=== PATIENT | female | born 1960 | race Caucasian/White ===

== ENCOUNTER → 2020-08-23 11:07 | Outpatient (CLI) | payer BC, SELFPAY ==
[2020-08-23 12:10] LABS: COVID19 -Nasal RAPID Negative (Negative)
== END ==
PROVIDERS: Visit Provider Physician Assistant
DX: Z11.59 Encounter for screening for other viral diseases (principal)
CPT/HCPCS: 87635

== ENCOUNTER → 2020-10-30 09:50 | Outpatient (CLI) | payer BC, SELFPAY ==
[2020-10-30 11:42] LABS: COVID19 -Nasal RAPID Negative (Negative)
== END ==
PROVIDERS: Visit Provider Physician Assistant
DX: Z20.822 Contact with and (suspected) exposure to COVID-19 (principal)
CPT/HCPCS: 87635

== ENCOUNTER 2020-11-11 14:59 | Emergency (ER) | payer BC, SELFPAY ==
[2020-11-11] VITALS (11 sets, daily range): BP systolic 159–215; BP diastolic 70–91; PULSE 62–91; RESP 11–25; TEMP 37.2; O2SAT 96–100; BMI 26.9
--- NOTE | 2020-11-11 15:11 | DI.RAD.S_ITS ---
PROCEDURE: XR CHEST 1V INDICATIONS: chest pain TECHNIQUE: One view of the chest was acquired. COMPARISON: Outside Film, CR, XR CHEST 2 VIEWS, 04/17/2017, 16:33. FINDINGS: Overlying EKG wires. Surgical changes and devices: None. Lungs and pleura: Lungs are clear. No pleural effusions or pneumothorax. Mediastinum: Mediastinal contours appear normal. Heart size is normal. Bones and chest wall: No acute osseous abnormality. Globular calcifications along the superior left humeral head likely represent hydroxyapatite deposition and may be seen with calcific tendinitis of the rotator cuff. Calcifications overlying the acromion are nonspecific but may represent cycle of remote trauma. Overlying soft tissues appear unremarkable. IMPRESSION: No evidence of an acute cardiopulmonary abnormality. Dictated by: Yousuf Chand D.O. on 11/11/2020 at 15:04 Approved by: Yousuf Chand D.O. on 11/11/2020 at 15:06
[2020-11-11 15:36] LABS: Add Manual Diff / Slide Review NO; Basophils Absolute Auto 100 /uL (0-100); Basophils Percent Auto 1.1 % (0-2); Eosinophils Absolute Auto 100 /uL (0-450); Eosinophils Percent Auto 1.3 % (2-4); Hematocrit 37.6 % (36-46); Hemoglobin 13.6 g/dL (12.0-16.0); Lymphocytes Absolute Auto 1300 /uL (1100-4500); Mean Corpuscular Hemoglobin 30.3 PG (26-34); Mean Corpuscular Volume 83.7 fL (80-100); Monocytes Absolute Auto 400 /uL (0-900); Monocytes Percent Auto 5.1 % (3-14); Neutrophils Absolute Auto 5400 /uL (1500-7000); Neutrophils Percent Auto 74.5 % (50-75); Prothrombin Time 11.3 SECONDS (10.1-12.7); Red Blood Cell Count 4.49 X10^6/uL (4.0-5.2); Red Cell Distribution Width 16.5 % (11.6-14.8); White Blood Cell Count 7.2 X10^3/uL (4.5-11.0)
[2020-11-11 15:38] LABS: PTT Partial Thromboplastin Tim 30 SECONDS (26.4-36.2)
--- NOTE | 2020-11-11 15:38 | ED_ITS ---
HPI - Chest Pain General Chief Complaint: Chest Pain Stated Complaint: left side chest pain Time Seen by Provider: 11/11/20 15:33 Source: patient Mode of arrival: Family Vehicle Limitations: no limitations History of Present Illness HPI narrative: Patient is a 59-year-old female. Has a history of costochondritis. States that it mid morning she started having he sharp pain in her left side of her chest that did not seem to get better with movement or palpation. Then she started to get some tingling in her left jaw. Those symptoms have resolved however she occasionally gets the sharp pain on the left side of her chest that she states is different than when she had this morning. She states that it was consistent for the past couple hours however is resolved by the time I evaluated the patient. Has never had anything like this in the past. Related Data Home Medications Medication Instructions Recorded Confirmed amlodipine 5 mg tablet 5 mg PO DAILY 09/13/19 09/23/20 Previous Rx's Medication Instructions Recorded fluticasone propionate 50 2 spray INTRANASAL DAILY #18.2 ml 09/23/20 mcg/actuation nasal spray,suspension Allergies Allergy/AdvReac Type Severity Reaction Status Date / Time ciprofloxacin [From Cipro] AdvReac Intermediate Tendon Verified 11/11/20 15:09 issues metoprolol AdvReac Intermediate heart races Verified 11/11/20 15:09 Sulfa (Sulfonamide AdvReac Intermediate Rash Verified 11/11/20 15:09 Antibiotics) Review of Systems Constitutional Constitutional: Denies fever(s) Cardiovascular Cardiovascular: Reports chest pain, Denies diaphoresis, Denies rapid heart rate, Denies edema and Denies dyspnea Respiratory Respiratory: Denies chest congestion and Denies dyspnea Gastrointestinal Gastrointestinal: Denies nausea and Denies vomiting Genitourinary Genitourinary: Denies dysuria Genitourinary: Denies dysuria Musculoskeletal Musculoskeletal: Denies arthralgias and Denies myalgias Integumentary/Breasts Skin/Breast: Denies rash Neurologic Neurologic: Denies behavioral changes Psychiatric Psychiatric: Denies behavioral changes Hematologic/Lymphatic On Anticoagulants: No Allergic/Immunologic Allergic/Immunologic: Denies urticaria Patient History Medical History Anemia Chicken pox Colon polyps (~2012) Diverticular disease (~1983) Essential tremor (~2016) Fibroids Foot pain (~2015) Headache Heavy menstrual period (~1998) Kidney stones (~2017) Migraines (~1993) Mitral valve prolapse (~1993) MRSA (methicillin resistant Staphylococcus aureus) Ovarian cyst Painful menstrual periods (~1998) Rosacea (~2008) Shoulder pain (~2008) Spherocytosis (~1993) Tinnitus (~2009) Surgical History (Updated 09/14/19 @ 22:16 by Kita Das) Anesthesia History of colonoscopy (~10/2012) History of hysteroscopy (~11/2010) History of sinus surgery (~01/2012) Family History (Updated 09/14/19 @ 22:18 by Kita Das) Father History of heart disease Mother Atrial fibrillation Diabetes mellitus Thyroid condition Breast cancer Stroke Social History Smoking Status: Former smoker Smoking Status: Former smoker Substance Use Type: does not use Exam Initial Vital Signs Initial Vital Signs: Vital Signs Temperature 99.0 F 11/11/20 15:06 Pulse Rate 91 H 11/11/20 15:06 Respiratory Rate 18 11/11/20 15:06 Blood Pressure 215/91 H 11/11/20 15:06 Pulse Oximetry 98 11/11/20 15:06 Const General: cooperative and comfortable Limitations: mental status not altered HENMT Head: normal to inspection and normocephalic Chest Chest: No crepitus and No tenderness Resp Effort & Inspection: normal respiratory effort Auscultation: clear to auscultation bilaterally Cardio Rate: regular rate Rhythm: regular rhythm GI Inspection: non-distended Palpation: soft Skin Lesions: no lesions Rashes: no rashes Neuro General: patient alert and patient awake Cognition: normal cognition Speech: speech normal Extrem General: capillary refill normal Psych Appearance: grossly normal and well kempt Course Orders Ordered: ED Orders 11/11/20 15:10 Complete Blood Count AUTO DIFF Stat Comprehensive Metabolic Panel Stat Lipase Stat Partial Thromboplastin Time Stat Prothrombin Time INR Stat Troponin & CK Cardiac Panel Stat 11/11/20 15:11 XR chest 1V Stat EKG-12 Lead Stat 11/11/20 17:30 Troponin & CK Cardiac Panel Stat Vital Signs Vital signs: Vital Signs - 8 hr 11/11/20 15:06 11/11/20 15:07 11/11/20 15:30 Temperature 99.0 F Pulse Rate 91 H 90 70 Respiratory Rate 18 25 H 11 L Blood Pressure 215/91 H Pulse Oximetry 98 99 99 11/11/20 15:31 11/11/20 16:00 11/11/20 16:30 Temperature Pulse Rate 70 65 62 Respiratory Rate 12 16 13 Blood Pressure 170/72 H 181/74 H 171/72 H Pulse Oximetry 100 100 99 11/11/20 17:00 Temperature Pulse Rate 62 Respiratory Rate 15 Blood Pressure 159/70 H Pulse Oximetry 98 MDM - Chest Pain Lab Data Attestation: I reviewed the patient's lab results. Result diagrams: 11/11/20 15:10 11/11/20 15:10 Labs: Lab Results 11/11/20 11/11/20 11/11/20 Range/Units 15:10 15:10 15:10 WBC 7.2 (4.5-11.0) X10^3/uL RBC 4.49 (4.0-5.2) X10^6/uL Hgb 13.6 (12.0-16.0) g/dL Hct 37.6 (36-46) % MCV 83.7 (80-100) fL MCH 30.3 (26-34) PG MCHC 35.5 (30-36) % RDW 16.5 H (11.6-14.8) % Plt Count 222 (150-400) X10^3/uL Neut % (Auto) 74.5 (50-75) % Lymph % (Auto) 18.0 L (25-40) % Jewell % (Auto) 5.1 (3-14) % Eos % (Auto) 1.3 L (2-4) % Baso % (Auto) 1.1 (0-2) % Neut # (Auto) 5400 (4246-7188) /uL Lymph # (Auto) 1300 (2547-7583) /uL Jewell # (Auto) 400 (0-900) /uL Eos # (Auto) 100 (0-450) /uL Baso # (Auto) 100 (0-100) /uL PT 11.3 (10.1-12.7) SECONDS INR 1.0 (0.9-1.3) APTT 30 (26.4-36.2) SECONDS Sodium 140 (137-145) mmol/L Potassium 4.0 (3.4-5.1) mmol/L Chloride 103 (98-107) mmol/L Carbon Dioxide 31 (22-32) mmol/L BUN 12 (7-17) mg/dL Creatinine 0.56 (0.52-1.04) mg/dL Estimated GFR > 60.0 (>60) mL/min BUN/Creatinine Ratio 21.4 (6-22) Glucose 143 H (70-100) mg/dL Calcium 9.3 (8.4-10.2) mg/dL Total Bilirubin 1.2 (0.2-1.3) mg/dL AST 33 (14-36) IU/L ALT 23 (<35) IU/L Alkaline Phosphatase 92 (38-126) U/L Total Creatine Kinase 39 (30-135) U/L CK-MB (CK-2) TNP CK-MB (CK-2) Rel Index TNP Troponin I < 0.012 (0.01-0.034) ng/mL Total Protein 8.2 (6.3-8.2) g/dL Albumin 4.7 (3.5-5.0) g/dL Globulin 3.5 (1.7-4.1) g/dL Albumin/Globulin Ratio 1.3 (1.0-2.8) Lipase 110 (23-300) U/L 11/11/20 Range/Units 17:30 WBC (4.5-11.0) X10^3/uL RBC (4.0-5.2) X10^6/uL Hgb (12.0-16.0) g/dL Hct (36-46) % MCV (80-100) fL MCH (26-34) PG MCHC (30-36) % RDW (11.6-14.8) % Plt Count (150-400) X10^3/uL Neut % (Auto) (50-75) % Lymph % (Auto) (25-40) % Jewell % (Auto) (3-14) % Eos % (Auto) (2-4) % Baso % (Auto) (0-2) % Neut # (Auto) (8609-5531) /uL Lymph # (Auto) (9674-7167) /uL Jewell # (Auto) (0-900) /uL Eos # (Auto) (0-450) /uL Baso # (Auto) (0-100) /uL PT (10.1-12.7) SECONDS INR (0.9-1.3) APTT (26.4-36.2) SECONDS Sodium (137-145) mmol/L Potassium (3.4-5.1) mmol/L Chloride (98-107) mmol/L Carbon Dioxide (22-32) mmol/L BUN (7-17) mg/dL Creatinine (0.52-1.04) mg/dL Estimated GFR (>60) mL/min BUN/Creatinine Ratio (6-22) Glucose (70-100) mg/dL Calcium (8.4-10.2) mg/dL Total Bilirubin (0.2-1.3) mg/dL AST (14-36) IU/L ALT (<35) IU/L Alkaline Phosphatase (38-126) U/L Total Creatine Kinase 30 (30-135) U/L CK-MB (CK-2) TNP CK-MB (CK-2) Rel Index TNP Troponin I < 0.012 (0.01-0.034) ng/mL Total Protein (6.3-8.2) g/dL Albumin (3.5-5.0) g/dL Globulin (1.7-4.1) g/dL Albumin/Globulin Ratio (1.0-2.8) Lipase (23-300) U/L Imaging Data Chest x-ray: Radiologist's Impression: [address] [id number] ReportSigned Patient: Verónica Campbell [facility]#: [id number]: 2Acct:[id number]/Sex: 59 / FDate of Service: 11/11/20Loc: EDAccession Number: [id number] Procedure: XR chest 1V Ordering Provider: Lang Scott D.O. PROCEDURE: XR CHEST 1V INDICATIONS: chest pain TECHNIQUE: One view of the chest was acquired. COMPARISON: Outside Film, CR, XR CHEST 2 VIEWS, 04/17/2017, 16:33. FINDINGS: Overlying EKG wires. Surgical changes and devices: None. Lungs and pleura: Lungs are clear. No pleural effusions or pneumothorax. Mediastinum: Mediastinal contours appear normal. Heart size is normal. Bones and chest wall: No acute osseous abnormality. Globular calcifications along the superior left humeral head likely represent hydroxyapatite deposition and may be seen with calcific tendinitis of the rotator cuff. Calcifications overlying the acr omion are nonspecific but may represent cycle of remote trauma. Overlying soft tissues appear unremarkable. IMPRESSION: No evidence of an acute cardiopulmonary abnormality. Dictated by: Yousuf Chand D.O. on 11/11/2020 at 15:04 Approved by: Yousuf Chand D.O. on 11/11/2020 at 15:06 ECG Data Attestation: I personally reviewed and interpreted this ECG as follows: Prior ECG tracings: not available for review Interpretation: Sinus rhythm Ventricular rate 81 Normal axis Normal QRS Normal QTC No ST T wave changes MDM Narrative Medical decision making narrative: EKG is unremarkable, troponins are negative x2 with the 2nd being greater than 6 hours after the onset of symptoms. Her presentation today is more consistent with musculoskeletal/chest wall discomfort per her description rather than a cardiac discomfort. She is going to continue her medications. She is going to contact her primary doctor to discuss further workup. She is given return precautions. She expressed understanding and agreement. Discharge Plan Departure Patient Disposition: Home Clinical Impression: Atypical chest pain Instructions: DI for Atypical Chest Pain Activity Restrictions/Additional Instructions: I recommend you continue all of your medications as directed and I also recommend you contact your primary provider to discuss the indications for an outpatient stress test. Return to the emergency department for any new or worsening symptoms Prescriptions: No Action fluticasone propionate [Flonase Allergy Relief] 50 mcg/actuation spray,suspension 2 spray intranasal DAILY Qty: 18.2 RF: 0 amlodipine 5 mg tablet 5 mg PO DAILY RF: 0 Referrals: Mikayla Caba MD [Primary Care Provider] -
[2020-11-11 15:39] LABS: Alanine Aminotransferase 23 IU/L (<35); Albumin 4.7 g/dL (3.5-5.0); Albumin Globulin Ratio 1.3 (1.0-2.8); Alkaline Phosphatase 92 U/L (38-126); Aspartate Aminotransferase 33 IU/L (14-36); BUN Creatinine Ratio 21.4 (6-22); Bilirubin Total 1.2 mg/dL (0.2-1.3); Blood Urea Nitrogen 12 mg/dL (7-17); Calcium 9.3 mg/dL (8.4-10.2); Carbon Dioxide 31 mmol/L (22-32); Chloride 103 mmol/L (98-107); Creatine Kinase 39 U/L (30-135); Estimated Glomerular Filt Rate > 60.0 mL/min (>60); Globulin 3.5 g/dL (1.7-4.1); Glucose 143 mg/dL (70-100); Lipase 110 U/L (23-300); Sodium 140 mmol/L (137-145); Total Protein 8.2 g/dL (6.3-8.2)
[2020-11-11 15:44] LABS: HEMOLYSIS 65 (0-50)
[2020-11-11 15:51] LABS: Troponin I < 0.012 ng/mL (0.01-0.034)
[2020-11-11 16:04] LABS: Mean Corpuscular HGB Conc 35.5 % (30-36)
[2020-11-11 16:07] LABS: Platelet Count 222 X10^3/uL (150-400)
[2020-11-11 17:53] LABS: Creatine Kinase 30 U/L (30-135)
[2020-11-11 18:05] LABS: Troponin I < 0.012 ng/mL (0.01-0.034)
== END 2020-11-11 18:40 | disposition home or self-care (01) ==
PROVIDERS: Emergency Provider Emergency Medicine; PCP Family Medicine
DX: R07.89 Other chest pain (principal)
CPT/HCPCS: 36415; 71045; 80053; 82550; 83690; 84484; 85025; 85610; 85730; 93005; 93010; 99284

== ENCOUNTER → 2020-11-30 13:04 | Outpatient (CLI) | payer BC, SELFPAY ==
[2020-11-30 13:43] LABS: COVID19 -Nasal RAPID Negative (Negative)
== END ==
PROVIDERS: PCP Family Medicine; Visit Provider Physician Assistant
DX: Z20.822 Contact with and (suspected) exposure to COVID-19 (principal)
CPT/HCPCS: 87635

== ENCOUNTER → 2020-12-30 11:51 | Outpatient (CLI) | payer BC, SELFPAY ==
[2020-12-30 12:15] LABS: COVID19 -Nasal RAPID Negative (Negative)
== END ==
PROVIDERS: PCP Family Medicine; Visit Provider Physician Assistant
DX: Z20.822 Contact with and (suspected) exposure to COVID-19 (principal)
CPT/HCPCS: 87635

== ENCOUNTER → 2021-02-03 09:35 | Outpatient (CLI) | payer BC, SELFPAY ==
[2021-02-03 10:22] LABS: Basophils Absolute Auto 0 /uL (0-100); Basophils Percent Auto 0.7 % (0-2); Eosinophils Absolute Auto 0 /uL (0-450); Eosinophils Percent Auto 0.5 % (2-4); Hematocrit 38.7 % (36-46); Lymphocytes Absolute Auto 1000 /uL (1100-4500); Lymphocytes Percent Auto 14.6 % (25-40); Mean Corpuscular HGB Conc 36.3 % (30-36); Mean Corpuscular Hemoglobin 30.5 PG (26-34); Mean Corpuscular Volume 84.2 fL (80-100); Monocytes Absolute Auto 300 /uL (0-900); Monocytes Percent Auto 4.2 % (3-14); Neutrophils Absolute Auto 5200 /uL (1500-7000); Platelet Count 238 X10^3/uL (150-400); Red Cell Distribution Width 16.5 % (11.6-14.8); White Blood Cell Count 6.6 X10^3/uL (4.5-11.0)
[2021-02-03 10:33] LABS: Lactate (Lactic Acid) 0.8 mmol/L (0.7-2.1)
[2021-02-03 10:34] LABS: Alanine Aminotransferase 23 IU/L (<35); Albumin 4.6 g/dL (3.5-5.0); Albumin Globulin Ratio 1.4 (1.0-2.8); Alkaline Phosphatase 90 U/L (38-126); Aspartate Aminotransferase 28 IU/L (14-36); BUN Creatinine Ratio 19.3 (6-22); Bilirubin Total 1.2 mg/dL (0.2-1.3); Blood Urea Nitrogen 11 mg/dL (7-17); Calcium 9.9 mg/dL (8.4-10.2); Carbon Dioxide 26 mmol/L (22-32); Chloride 105 mmol/L (98-107); Estimated Glomerular Filt Rate > 60.0 mL/min (>60); Globulin 3.3 g/dL (1.7-4.1); Glucose 102 mg/dL (70-100); HEMOLYSIS < 15 (0-50); Lipase 75 U/L (23-300); Sodium 139 mmol/L (137-145); Total Protein 7.9 g/dL (6.3-8.2)
[2021-02-03 10:57] LABS: Add Manual Diff / Slide Review SLIDE REVIEW
[2021-02-03 10:58] LABS: Rouleaux 1+
== END ==
PROVIDERS: PCP Family Medicine; Referring Provider Physician Assistant; Visit Provider Physician Assistant
DX: R10.31 Right lower quadrant pain (principal)
CPT/HCPCS: 36415; 80053; 83605; 83690; 85025

== ENCOUNTER → 2021-05-17 17:30 | Outpatient (CLI) | payer BC, SELFPAY ==
[2021-05-17 19:39] LABS: COVID19 -Nasal RAPID Negative (Negative)
== END ==
PROVIDERS: PCP Family Medicine; Visit Provider Physician Assistant
DX: Z20.822 Contact with and (suspected) exposure to COVID-19 (principal)
CPT/HCPCS: 87635

== ENCOUNTER → 2021-06-19 16:34 | Outpatient (CLI) | payer BC, SELFPAY ==
[2021-06-19 18:20] LABS: High Sensitivity CRP - Cardiac 3.1 mg/L (1.0-3.0)
[2021-06-19 19:19] LABS: Erythrocyte Sedimentation Rate 10 MM/HR (0-20)
== END ==
PROVIDERS: PCP Family Medicine; Referring Provider Psychiatry & Neurology Neurology; Visit Provider Psychiatry & Neurology Neurology
DX: R51.9 Headache, unspecified (principal)
CPT/HCPCS: 36415; 85651; 86140

== ENCOUNTER → 2021-11-16 09:58 | Outpatient (CLI) | payer BC, SELFPAY ==
[2021-11-16 10:56] LABS: Influenza A - CEPHEID Flu A NEGATIVE (NEGATIVE); Influenza B - CEPHEID Flu B NEGATIVE (NEGATIVE)
[2021-11-16 11:10] LABS: COVID-19 CEPHEID PCR (VTM/NP) Negative (Negative)
== END ==
PROVIDERS: PCP Family Medicine; Visit Provider Nurse Practitioner Family
DX: Z20.822 Contact with and (suspected) exposure to COVID-19 (principal); R68.89 Other general symptoms and signs
CPT/HCPCS: 0240U

== ENCOUNTER → 2022-04-26 07:56 | Outpatient (CLI) | payer BC, SELFPAY | PROVIDERS: PCP Family Medicine; Visit Provider Student in an Organized Health Care Education/Training Program | DX: R30.0 Dysuria (principal) | CPT/HCPCS: 87086 ==

== ENCOUNTER → 2023-04-07 13:42 | Outpatient (CLI) | payer BC, SELFPAY ==
--- NOTE | 2023-04-07 | DI.NM.S_ITS ---
PROCEDURE: NM EXERCISE TREADMILL NON NUC COMPARISON: None INDICATIONS: Chest pain, unspecified FINDINGS: Rest ECG sinus rhythm. Resting blood pressure 178/80. Ruben protocol 7:05, maximum heart rate 155 bpm (97% peak predicted), maximum blood pressure 198/65, 10.1 METS, OCTAVIA -5%. Exercise ECG sinus tachycardia, no ST segment changes, occasional PVCs. The patient did not complain of exercise-induced chest discomfort. IMPRESSION: Low risk study. No evidence of exercise-induced ischemia. Occasional PVCs noted. Baseline hypertension with otherwise normal hemodynamic response. Fair exercise capacity. Dictated by: Chastity Short D.O. on 04/07/2023 at 16:50 Approved by: Chastity Short D.O. on 04/07/2023 at 16:53
--- NOTE | 2023-04-07 | DI.ECHO.S_ITS ---
[facility]---------+ [facility] +---------+ : : [address] : : : : [id number] : : : : Phone: [phone]---------+ Echocardiogram Report + + :Name: DAY PELLETIER Study Date: 04/07/2023 Height: 64 in : :[facility] ReadingLocation: Weight: 157 lb : : Gender: Female BSA: 1.8 m2 : :: 1960 Age: 62 yrs BP: 168/79 mmHg: :Reason For Study: Chest Pain : :Ordering Physician: Stef, : :Tr Performed By: Meena Rayo : :Referring: TR FINCH : + + Interpretation Summary 1) Normal left ventricular thickness, size, and systolic function (EF 60-65%). 2) There are no obvious focal wall motion abnormalities noted but poor endocardial definition reduces the sensitivity for the detection of such. 3) Normal right ventricular size and function. 4) There is borderline mitral valve prolapse of the posterior leaflet. 5) No significant valvular stenosis or regurgitation. 6) No prior Echo available for comparison. Procedure: A two-dimensional transthoracic echocardiogram with color flow and Doppler was performed. The study quality was technically adequate. There is no prior echocardiogram noted for this patient. The patient was in normal sinus rhythm during the exam. Left Ventricle: The left ventricle is normal in size and wall thickness. The ejection fraction is estimated to be 60-65%. There are no obvious focal wall motion abnormalities noted but poor endocardial definition reduces the sensitivity for the detection of such. Diastolic parameters suggest a relaxation abnormality of the left ventricle, consistent with probable normal filling pressures. Right Ventricle: The right ventricle is normal size. The right ventricular systolic function is normal. Atria: The left atrial size is normal. Right atrial size is normal. There is no Doppler evidence for an interatrial shunt. Mitral Valve: The mitral valve leaflets appear mildly thickened, but open well. There is prolapse of the posterior mitral valve leaflet(s). There is borderline mitral valve prolapse. There is no mitral valve stenosis. There is trace mitral regurgitation. Aortic Valve: The aortic valve is trileaflet. The aortic valve opens well. There is no aortic valve stenosis. There is trace aortic regurgitation. Tricuspid Valve: The tricuspid valve is normal. There is no tricuspid stenosis. There is trace tricuspid regurgitation. The right ventricular systolic pressure is estimated to be at least 19 mmHg based on an estimated right atrial pressure of 3 mm Hg. Pulmonic Valve: The pulmonic valve leaflets are thin and pliable; valve motion is normal. There is no pulmonic valvular stenosis. There is trace pulmonic regurgitation. Great Vessels: The aortic root is normal size. The ascending aorta is normal in size. The pulmonary artery is normal size. The IVC is of normal diameter and collapses greater than 50% with a sniff. This suggests a low right atrial pressure of 3 mm Hg. Pericardium/ Pleura There is no pericardial effusion. There is no pleural effusion. MMode/2D Measurements & Calculations LVIDd: 4.4 cm LVOT diam: 1.9 cm LVIDs: 3.0 cm Ao root diam: 2.7 cm FS: 31.8 % asc Aorta Diam: 2.8 cm IVSd: 1.0 cm LVPWd: 1.0 cm LV madrigal. diameter/BSA (cm/m^2): 2.5 LV sys. diameter/BSA (cm/m^2): 1.7 LA A2 area: 18.6 cm2 RA long axis: 4.8 cm LA A4 area: 13.7 cm2 RA area: 12.6 cm2 LA length (vol): 5.2 cm RA vol: 28.2 ml LA vol: 41.4 ml RA : 16.0 ml/m2 LA vol index: 23.4 ml/m2 RVD1 (basal): 3.0 cm LVLs ap4: 5.9 cm LVLd ap2: 7.6 cm TAPSE_phl: 2.5 cm LVLs ap2: 6.4 cm Doppler Measurements & Calculations Ao V2 max: 154.0 cm/sec LVOT Max Terry: 111.5 cm/sec Ao V2 mean: 101.5 cm/sec LV V1 max P.0 mmHg Ao max P.0 mmHg LV V1 VTI: 26.3 cm Ao mean P.0 mmHg CALEB(I,D): 2.2 cm2 Ao V2 VTI: 35.5 cm CALEB(V,D): 2.2 cm2 sev ratio: 0.74 CALEB indexed to BSA (cm^2/m^2): 1.2 MV E max terry: 113.0 cm/sec TR max terry: 202.0 cm/sec MV A max terry: 96.8 cm/sec TR max P.3 mmHg MV E/A: 1.2 PA V2 max: 103.0 cm/sec Med Peak E' Terry: 8.0 cm/sec PA V2 mean: 74.5 cm/sec E/E' med: 14.1 PA mean P.0 mmHg Lat Peak E' Terry: 8.1 cm/sec PA pr(Accel): 12.4 mmHg E/E' lat: 13.9 E/e' average: 14.0 MV dec time: 0.24 sec SV(LVOT): 78.1 ml AV VR_phl: 0.73 CALEB(VTI)/BSA_phl: 1.1 MV P1/2t-pr_phl: 70.0 msec Reading Physician:04:20 PM
== END ==
PROVIDERS: PCP Family Medicine; Referring Provider Internal Medicine Cardiovascular Disease; Visit Provider Internal Medicine Cardiovascular Disease
DX: R07.89 Other chest pain (principal)
CPT/HCPCS: 93017; 93306

== ENCOUNTER 2023-08-30 08:30 | Emergency (ER) | payer BC, SELFPAY ==
[2023-08-30] VITALS (18 sets, daily range): BP systolic 147–201; BP diastolic 67–87; PULSE 49–72; RESP 16–28; TEMP 36.6; O2SAT 98–100; BMI 26.1
--- NOTE | 2023-08-30 08:48 | ED.EXTPRO ---
HPI - Extremity Problem General Chief complaint: Chest Pain Stated complaint: Left lower leg pain Time Seen by Provider: 08/30/23 08:46 Source: patient, RN notes reviewed and old records reviewed Mode of arrival: Ambulatory Limitations: no limitations History of Present Illness HPI Narrative: 62-year-old female with history of hereditary spherocytosis, mitral valve prolapse, hypertension on amlodipine, migraines with complaint of left calf pain for the past 2 or 3 days. Patient is not on any anticoagulation. Patient has tried ice, heat Epsom salt soaks and magnesium and drinking extra water without any improvement. She denies any redness, swelling or other skin changes. She has noticed some tingling in her left calf. States that it does feel a little bit different than the right. Has not resolved so she came to be checked. Patient states she is also noted little bit of upper chest discomfort or heaviness in her upper chest starting yesterday. Been constant. No shortness of breath, no syncope, no nausea or vomiting, no diaphoresis, she is had some mild dry cough, no upper respiratory congestion. No fevers or chills. Denies any issues such as diarrhea constipation, no black or bloody stools. No urinary symptoms. Patient states she does have a history of hereditary spherocytosis, no prior blood clots. She does have a history of multiply of prolapse, on amlodipine for hypertension, duloxetine and memantine for migraines. Denies tobacco, alcohol or illicit. States no prior surgeries. Related Data Home Medications Medication Instructions Recorded Confirmed amlodipine 5 mg tablet 5 mg PO DAILY 09/13/19 08/30/23 memantine 5 mg tablet 5 mg PO BID 12/30/20 08/30/23 duloxetine 40 mg capsule,delayed 40 mg PO DAILY 08/30/23 08/30/23 release Previous Rx's Medication Instructions Recorded fluticasone propionate 50 2 spray intranasal DAILY #18.2 mL 09/23/20 mcg/actuation nasal spray,suspension (Flonase Allergy Relief) atorvastatin 40 mg tablet 40 mg PO BEDTIME #30 tabs 08/30/23 Allergies Allergy/AdvReac Type Severity Reaction Status Date / Time ciprofloxacin [From Cipro] AdvReac Intermediate Tendon Verified 08/30/23 07:55 issues metoprolol AdvReac Intermediate heart races Verified 08/30/23 07:55 Sulfa (Sulfonamide AdvReac Intermediate Rash Verified 08/30/23 07:55 Antibiotics) Review of Systems Review of Systems ROS Unobtainable: All systems reviewed & are unremarkable except as noted in HPI and below Patient History Medical History Urgency of micturition Dysuria RLQ abdominal pain Rosacea (~2008) Essential tremor (~2016) Migraines (~1993) Headache Shoulder pain (~2008) Foot pain (~2015) MRSA (methicillin resistant Staphylococcus aureus) Chicken pox Spherocytosis (~1993) Anemia Tinnitus (~2009) Painful menstrual periods (~1998) Ovarian cyst Heavy menstrual period (~1998) Fibroids Kidney stones (~2017) Diverticular disease (~1983) Colon polyps (~2012) Mitral valve prolapse (~1993) Surgical History Anesthesia History of colonoscopy (~10/2012) History of sinus surgery (~01/2012) History of hysteroscopy (~11/2010) Family History Father History of heart disease Mother Atrial fibrillation Diabetes mellitus Thyroid condition Breast cancer Stroke Social History Smoking Status: Former smoker Smoking Status: Former smoker Substance Use Type: does not use Exam Narrative Exam Narrative: GENERAL: Alert and oriented x three, well-appearing female in mild distress. HEENT: Head normocephalic, atraumatic, EOMI, pupils reactive, face symmetric, moist mucous membranes NECK: Supple, full range of motion CARDIOVASCULAR: Regular rate and rhythm without murmurs, rubs or gallops. No JVD. No edema bilateral lower extremities. RESPIRATORY: Breath sounds equal bilaterally, no wheezes rales or rhonchi. ABDOMEN: Soft, nontender. Normoactive bowel sounds all 4 quadrants. No guarding or rebound, rigidity, no mass : No CVA tenderness EXTREMITIES: Normal range of motion, no clubbing or edema. Neurovascularly intact. Patient does have some tenderness with Homans on left calf. No warmth, no erythema or other skin changes. Calves appear to be equal bilaterally. 2+ pulse with sensation throughout lower extremity. Normal range of motion. NEUROLOGICAL: Cranial nerves II through XII grossly intact. Moving all extremities SKIN: Warm, dry, no petechiae, no rashes or lesions. Initial Vital Signs Initial Vital Signs: Vital Signs Temperature 97.8 F 08/30/23 08:47 Pulse Rate 72 08/30/23 08:47 Respiratory Rate 16 08/30/23 08:47 Blood Pressure 192/85 H 08/30/23 08:47 Pulse Oximetry 100 08/30/23 08:47 Oxygen Delivery Method Room Air 08/30/23 08:47 Course Orders Ordered: ED Orders 08/30/23 08:53 EKG-12 Lead Stat 08/30/23 08:57 XR chest 1V Stat 08/30/23 08:58 US periph venous low extrem lt Stat 08/30/23 09:12 Complete Blood Count AUTO DIFF Stat Comprehensive Metabolic Panel Stat Lipase Stat NT-proBNP (BNP-Adult 18+) Stat PTT Partial Thromboplastin Reuben Stat Prothrombin Time INR Stat Troponin & CK Cardiac Panel Stat 08/30/23 10:14 CT angio chest PE protocol Stat 08/30/23 11:14 EKG-12 Lead Stat 08/30/23 11:15 Trop I [Troponin I] Stat Discontinued Medications Amlodipine Besylate (Amlodipine 5 Mg Tablet) 5 mg PO NOW ONE Stop: 08/30/23 12:27 Last Admin: 08/30/23 12:38 Dose: 5 mg Documented By: KB Aspirin (Aspirin 81 Mg Chew Tab) 324 mg PO NOW ONE Stop: 08/30/23 12:41 Last Admin: 08/30/23 13:07 Dose: 324 mg Documented By: CTS Nitroglycerin (Nitroglycerin 0.4 Mg Sl Tab) 0.4 mg SL NOW ONE Stop: 08/30/23 10:22 Last Admin: 08/30/23 10:31 Dose: 0.4 mg Documented By: RB Vital Signs Vital signs: Vital Signs - 8 hr 08/30/23 09:30 08/30/23 09:31 08/30/23 09:31 Pulse Rate 65 62 Respiratory Rate 25 H 24 Blood Pressure 168/69 H Pulse Oximetry 98 99 08/30/23 10:30 08/30/23 10:31 08/30/23 10:31 Pulse Rate 59 L 64 58 L Respiratory Rate 17 Blood Pressure 201/87 H Pulse Oximetry 100 100 08/30/23 10:32 08/30/23 10:32 08/30/23 10:52 Pulse Rate 61 Respiratory Rate 17 Blood Pressure 201/84 H 163/72 H Pulse Oximetry 100 08/30/23 10:52 08/30/23 11:00 08/30/23 11:01 Pulse Rate 59 L 52 L Respiratory Rate 16 18 Blood Pressure 162/70 H Pulse Oximetry 98 99 08/30/23 11:01 08/30/23 11:30 08/30/23 11:31 Pulse Rate 51 L 53 L 56 L Respiratory Rate 18 19 18 Blood Pressure Pulse Oximetry 99 99 98 08/30/23 11:31 08/30/23 12:00 08/30/23 12:00 Pulse Rate 49 L Respiratory Rate 20 Blood Pressure 147/68 H 154/67 H Pulse Oximetry 99 08/30/23 12:30 08/30/23 12:30 08/30/23 13:00 Pulse Rate 53 L 56 L Respiratory Rate 18 19 Blood Pressure 174/74 H Pulse Oximetry 99 99 08/30/23 13:01 08/30/23 13:01 Pulse Rate 66 Respiratory Rate 28 H Blood Pressure 182/79 H Pulse Oximetry 99 MDM - Extremity (Nontraumatic) Lab Data 08/30/23 09:12 08/30/23 09:12 Labs: Lab Results 08/30/23 08/30/23 Range/Units 09:12 11:15 WBC 6.5 (4.5-11.0) X10^3/uL RBC 4.41 (4.0-5.2) X10^6/uL Hgb 13.4 (12.0-16.0) g/dL Hct 37.8 (36-46) % MCV 85.6 (80-100) fL MCH 30.4 (26-34) PG MCHC 35.5 (30-36) % RDW 16.6 H (11.6-14.8) % Plt Count 222 (150-400) X10^3/uL Neut % (Auto) 80.6 H (50-75) % Lymph % (Auto) 13.4 L (25-40) % Gordon % (Auto) 5.1 (3-14) % Eos % (Auto) 0.5 L (2-4) % Baso % (Auto) 0.4 (0-2) % Neut # (Auto) 5200 (1332-3052) /uL Lymph # (Auto) 900 L (8141-3621) /uL Gordon # (Auto) 300 (0-900) /uL Eos # (Auto) 0 (0-450) /uL Baso # (Auto) 0 (0-100) /uL PT 12.0 (9.4-12.5) SECONDS INR 1.0 (0.9-1.3) APTT 29 (25.1-36.5) SECONDS Sodium 138 (137-145) mmol/L Potassium 4.3 (3.4-5.1) mmol/L Chloride 103 (98-107) mmol/L Carbon Dioxide 31 (22-32) mmol/L BUN 7 (7-17) mg/dL Creatinine 0.55 (0.52-1.04) mg/dL Estimated GFR > 60 (>60) mL/min BUN/Creatinine Ratio 12.7 (6-22) Glucose 108 (80-110) mg/dL Calcium 9.6 (8.4-10.2) mg/dL Total Bilirubin 1.3 (0.2-1.3) mg/dL AST 44 H (14-36) IU/L ALT 30 (<35) IU/L Alkaline Phosphatase 85 (38-126) U/L Total Creatine Kinase 337 H (30-135) U/L Troponin I 0.042 H 0.043 H (0.01-0.034) ng/mL NT-Pro-B Natriuret Pep 204 H (<125) pg/mL Total Protein 7.8 (6.3-8.2) g/dL Albumin 4.5 (3.5-5.0) g/dL Globulin 3.3 (1.7-4.1) g/dL Albumin/Globulin Ratio 1.4 (1.0-2.8) Lipase 77 (23-300) U/L Imaging Data Chest x-ray: Radiologist's Impression: [address] [id number] XRay Report Signed Patient: Verónica Campbell MR#: [id number] : 1960 Acct:[id number] Age/Sex: 62 / F Date of Service: 08/30/23 Loc: ED Accession Number: [id number] Procedure: XR chest 1V Ordering Provider: Sheri Castro D.O. PROCEDURE: XR CHEST 1V INDICATIONS: chest pain TECHNIQUE: One view of the chest was acquired. COMPARISON: [facility], CR, XR CHEST 1V, 11/11/2020, 15:54. FINDINGS: Surgical changes and devices: None. Lungs and pleura: Lungs are clear. No pleural effusions or pneumothorax. Mediastinum: Mediastinal contours appear normal. Heart size is normal. Bones and chest wall: No suspicious bony lesions. Overlying soft tissues appear unremarkable. IMPRESSION: No acute cardiopulmonary pathology. Dictated by: Tonny Diaz M.D. on 08/30/2023 at 9:48 Approved by: Tonny Diaz M.D. on 08/30/2023 at 9:48 US - DVT: Radiologist's Impression: [address] [id number] Ultrasound Report Signed Patient: Verónica Campbell MR#: [id number] : 1960 Acct:[id number] Age/Sex: 62 / F Date of Service: 08/30/23 Loc: ED Accession Number: [id number] Procedure: US periph venous low extrem lt Ordering Provider: Sheri Castro D.O. PROCEDURE: US PERIPH VENOUS LOW EXTREM LT INDICATIONS: CALF PAIN. DECREASED ACTIVITY LEVEL. TECHNIQUE: Real-time imaging, as well as color and pulse Doppler interrogation, were performed of the lower extremity deep veins from the inguinal ligament to the popliteal fossa, with documentation of the visualized calf veins. COMPARISON: None. FINDINGS: The common femoral, femoral, popliteal, and the visualized calf veins are normally compressible, and free of intraluminal thrombus. Color and pulse Doppler demonstrate normal phasic intraluminal flow. There is normal augmentation response to distal compression maneuver. IMPRESSION: No evidence of DVT in visualized left lower extremity veins. Dictated by: Tonny Diaz M.D. on 08/30/2023 at 10:14 Approved by: Tonny Diaz M.D. on 08/30/2023 at 10:15 CT scan - chest: Radiologist's Impression: [address] [address] [address] Scan Report Signed Patient: Verónica Campbell MR#: [id number] : 1960 Acct:[id number] Age/Sex: 62 / F Date of Service: 08/30/23 Loc: ED Accession Number: [id number] Procedure: CT angio chest PE protocol Ordering Provider: Sheri Castro D.O. PROCEDURE: CT ANGIO CHEST PE PROTOCOL INDICATIONS: chest pain, calf pain, neg dvt, slightly elevated trop TECHNIQUE: After the administration of intravenous contrast, 2 mm thick sections acquired from the pulmonary apices to the posterior costophrenic angles. 3-dimensional maximum intensity projection (MIP) coronal and sagittal reformats were then acquired through the thorax. For radiation dose reduction, the following was used: automated exposure control, adjustment of mA and/or kV according to patient size. COMPARISON: None. FINDINGS: Image quality: Diagnostic. Pulmonary arteries: Pulmonary arteries are normal in size, and demonstrate no intraluminal filling defects to suggest central pulmonary embolism. Lungs and pleura: Lungs are clear. No pleural effusions or pneumothorax. Central and peripheral airways are patent. Mediastinum: Heart size is normal, without pericardial effusion. No mediastinal or hilar adenopathy. Thoracic aorta is normal in caliber and enhancement. Esophagus is normal in caliber, without hiatal hernia. Bones and chest wall: No suspicious bony lesions. Ribs and thoracic spine appear intact throughout. No axillary or supraclavicular adenopathy. Thyroid gland is enlarged with lobulated appearance and suggestion of hypodense nodule involving lower pole of right thyroid gland measures 1.1 x 1.1 cm in size. Series 2, image 22. Upper Abdomen: Well-circumscribed fluid density areas involving right and left hepatic lobe measures up to 5.8 x 4.9 cm in size in left hepatic lobe series 4, image 124, and up to 2.7 x 3.4 cm in size in right hepatic lobe inferior aspect series 4, image 151, likely represent hepatic cysts. The visualized portion of spleen, pancreas and bilateral adrenal glands shows no gross abnormalities. Nonobstructing bilateral punctate renal calculi are seen. No hydronephrosis. IMPRESSION: 1. No pulmonary emboli. No thoracic aortic aneurysm or dissection. 2. Bilateral lungs are clear. 3. Cardiomegaly, no pericardial effusion. No mediastinal or hilar lymphadenopathy. 4. Suggestion of right thyroid lobe nodule, suggest outpatient ultrasound thyroid gland follow-up. 5. Suggestion of simple appearing hepatic cysts as above. Dictated by: Tonny Diaz M.D. on 08/30/2023 at 11:35 Approved by: Tonny Diaz M.D. on 08/30/2023 at 11:38 ECG Data Attestation EKG: I personally reviewed and interpreted this ECG as follows: Prior ECG tracings: available for review Interpretation: Sinus bradycardia rate of 56 CO 142 QRS 82 QTC of 401, no acute ST elevation or depression. Patient has biphasic change in V3 suspect more motion artifact. No changes otherwise from prior on 06/07 Repeat EKG rate of 49 CO 140 QRS is 74 QTC 2. No acute ST elevation, nonspecific change no obvious elevation depression. MDM Narrative Medical decision making narrative: 62-year-old female comes in with complaint of left calf pain for several days and now little bit of upper chest discomfort. Patient does not have any known blood clot disorder, does have a history of hereditary spherocytosis, hypertension, prior migraines. States parents have had strokes in the past but with a reported embolic events. Patient was sitting quite a bit because her brother was in the hospital recently. She is had that was also why her upper chest was hurting she was in an unusual position for prolonged period. Plan for DVT ultrasound, cardiac workup discussed with patient if DVT is found would recommend CT angio although vitals are very appropriate she is 100% to 99% room air hypertension, no tachycardia no respiratory distress. Labs normal white count, hemoglobin 13 crit of 37, platelets of 2 2 2. Leftward shift. INR PTT are negative, electrolytes, BUN and renal function, glucose are normal LFTs show an AST of 44 but otherwise negative total CK is 337. Troponin 0.042 with a BNP of 204 and a lipase is 77. Troponin was repeated and is 0.043. EKG-for acute change. Chest x-ray negative for acute change. DVT ultrasound is negative. Patient did have an echo in April of 2023 with normal left ventricular thickness size and EF of 60-65% with no focal wall motion abnormalities noted poor endocardial definition reducing sensitivity normal right ventricular size and function borderline mitral valve prolapse no significant valvular stenosis or regurg. Patient has indeterminate troponin with normal renal function, chest pressure DVT ultrasound is negative but CT angio obtained shows no PE, bilateral lungs clear, notes cardiomegaly impression but states heart size is normal above. No pericardial effusion no lymphadenopathy suggestive of right thyroid lobe nodule recommended ultrasound thyroid gland follow up and simple hepatic appearing cysts. Patient was given 1 dose of nitro sublingual which resolved patient symptoms. Patient case was discussed with Dr. Finch Cardiology. Recommend stress testing upcoming week, with echo and increased blood pressure medication with amlodipine. Spoke with Dr. Herrera, hospitalist. Patient had stress test that was negative in April. We do not have next level up of stress testing. Recommendation was by Friday or Friday so would send home they do recommend adding on a statin. Also plan to continue with an aspirin daily. Spoke with patient updated her she continues to feel improved she was able to pull her old labs she did have an elevated troponin at 0.07 in the past with a cutoff of less than 0.04 remotely so may have chronically elevated troponins. This is a different assay than the 1 we use at our facility. Discussed with patient she would not wish to be transferred for stress testing. She feels comfortable returning home she states she is plenty of amlodipine we will increase to 10 mg daily. Plan to continue with aspirin daily. Discussed statin she is reluctant to start but is happy to take a prescription and may started this week. She states her primary care is pretty responsive and will follow up with them also given referral for Cardiology she has seen Dr. Finch in the past but is interested did not female pit slagman so gave his partner's name as well. Discussed return precautions all questions answered. Discharge Plan Departure Patient Disposition: Home Clinical Impression: Chest pain, Thyroid nodule, Hepatic cyst, Hypertension Instructions: DI for Chest Pain Activity Restrictions/Additional Instructions: Follow-up with your physician for outpatient ultrasound of nodule in your thyroid. CT imaging also shows a hepatic cyst incidentally. Please follow-up on Friday with your primary care or cardiology. I did speak with Cardiology they recommend echo and a more specialized stress test as an outpatient. They do recommend increasing your amlodipine to 10 mg daily for better blood pressure control. I would recommend aspirin 81 mg daily until follow-up. It is also recommended take a statin or medication for cholesterol and its anti-inflammatory properties daily until cleared. Prescription was printed. Please return for new or worsening chest pain, shortness of breath increasing lightheadedness or passing out, new swelling in your extremities, diaphoresis or sweatiness, nausea or vomiting or other new or concerning changes. Prescriptions: New atorvastatin 40 mg tablet 40 mg PO BEDTIME Qty: 30 0RF No Action fluticasone propionate [Flonase Allergy Relief] 50 mcg/actuation spray,suspension 2 spray intranasal DAILY Qty: 18.2 0RF Rx Instructions: administer into each nostril memantine 5 mg tablet 5 mg PO BID duloxetine 40 mg capsule,delayed release(DR/EC) 40 mg PO DAILY amlodipine 5 mg tablet 5 mg PO DAILY Referrals: Albert Finch MD [Physician] - Josefa Shrestha MD [Physician] - Mikayla Caba MD [Primary Care Provider] - Stand Alone Forms: Patient Portal/API
--- NOTE | 2023-08-30 08:57 | DI.RAD.S_ITS ---
PROCEDURE: XR CHEST 1V INDICATIONS: chest pain TECHNIQUE: One view of the chest was acquired. COMPARISON: [facility], CR, XR CHEST 1V, 11/11/2020, 15:54. FINDINGS: Surgical changes and devices: None. Lungs and pleura: Lungs are clear. No pleural effusions or pneumothorax. Mediastinum: Mediastinal contours appear normal. Heart size is normal. Bones and chest wall: No suspicious bony lesions. Overlying soft tissues appear unremarkable. IMPRESSION: No acute cardiopulmonary pathology. Dictated by: Tonny Diaz M.D. on 08/30/2023 at 9:48 Approved by: Tonny Diaz M.D. on 08/30/2023 at 9:48
--- NOTE | 2023-08-30 08:58 | DI.US.S_ITS ---
PROCEDURE: US PERIPH VENOUS LOW EXTREM LT INDICATIONS: CALF PAIN. DECREASED ACTIVITY LEVEL. TECHNIQUE: Real-time imaging, as well as color and pulse Doppler interrogation, were performed of the lower extremity deep veins from the inguinal ligament to the popliteal fossa, with documentation of the visualized calf veins. COMPARISON: None. FINDINGS: The common femoral, femoral, popliteal, and the visualized calf veins are normally compressible, and free of intraluminal thrombus. Color and pulse Doppler demonstrate normal phasic intraluminal flow. There is normal augmentation response to distal compression maneuver. IMPRESSION: No evidence of DVT in visualized left lower extremity veins. Dictated by: Tonny Diaz M.D. on 08/30/2023 at 10:14 Approved by: Tonny Diaz M.D. on 08/30/2023 at 10:15
[2023-08-30 09:18] LABS: Add Manual Diff / Slide Review NO; Basophils Absolute Auto 0 /uL (0-100); Basophils Percent Auto 0.4 % (0-2); Eosinophils Absolute Auto 0 /uL (0-450); Eosinophils Percent Auto 0.5 % (2-4); Hematocrit 37.8 % (36-46); Hemoglobin 13.4 g/dL (12.0-16.0); Lymphocytes Absolute Auto 900 /uL (1100-4500); Lymphocytes Percent Auto 13.4 % (25-40); Mean Corpuscular HGB Conc 35.5 % (30-36); Mean Corpuscular Hemoglobin 30.4 PG (26-34); Mean Corpuscular Volume 85.6 fL (80-100); Monocytes Absolute Auto 300 /uL (0-900); Monocytes Percent Auto 5.1 % (3-14); Neutrophils Absolute Auto 5200 /uL (1500-7000); Neutrophils Percent Auto 80.6 % (50-75); Platelet Count 222 X10^3/uL (150-400); Red Blood Cell Count 4.41 X10^6/uL (4.0-5.2); Red Cell Distribution Width 16.6 % (11.6-14.8); White Blood Cell Count 6.5 X10^3/uL (4.5-11.0)
[2023-08-30 09:27] LABS: PTT Partial Thromboplastin Tim 29 SECONDS (25.1-36.5)
[2023-08-30 09:30] LABS: Alanine Aminotransferase 30 IU/L (<35); Albumin 4.5 g/dL (3.5-5.0); Albumin Globulin Ratio 1.4 (1.0-2.8); Alkaline Phosphatase 85 U/L (38-126); Aspartate Aminotransferase 44 IU/L (14-36); BUN Creatinine Ratio 12.7 (6-22); Bilirubin Total 1.3 mg/dL (0.2-1.3); Blood Urea Nitrogen 7 mg/dL (7-17); Calcium 9.6 mg/dL (8.4-10.2); Carbon Dioxide 31 mmol/L (22-32); Chloride 103 mmol/L (98-107); Creatine Kinase 337 U/L (30-135); Estimated Glomerular Filt Rate > 60 mL/min (>60); Globulin 3.3 g/dL (1.7-4.1); Glucose 108 mg/dL (80-110); HEMOLYSIS 19 (0-50); Lipase 77 U/L (23-300); Potassium 4.3 mmol/L (3.4-5.1); Sodium 138 mmol/L (137-145); Total Protein 7.8 g/dL (6.3-8.2)
[2023-08-30 09:42] LABS: NT-proBNP (BNP-Adult 18+) 204 pg/mL (<125); Troponin I 0.042 ng/mL (0.01-0.034)
--- NOTE | 2023-08-30 10:14 | DI.CT.S_ITS ---
PROCEDURE: CT ANGIO CHEST PE PROTOCOL INDICATIONS: chest pain, calf pain, neg dvt, slightly elevated trop TECHNIQUE: After the administration of intravenous contrast, 2 mm thick sections acquired from the pulmonary apices to the posterior costophrenic angles. 3-dimensional maximum intensity projection (MIP) coronal and sagittal reformats were then acquired through the thorax. For radiation dose reduction, the following was used: automated exposure control, adjustment of mA and/or kV according to patient size. COMPARISON: None. FINDINGS: Image quality: Diagnostic. Pulmonary arteries: Pulmonary arteries are normal in size, and demonstrate no intraluminal filling defects to suggest central pulmonary embolism. Lungs and pleura: Lungs are clear. No pleural effusions or pneumothorax. Central and peripheral airways are patent. Mediastinum: Heart size is normal, without pericardial effusion. No mediastinal or hilar adenopathy. Thoracic aorta is normal in caliber and enhancement. Esophagus is normal in caliber, without hiatal hernia. Bones and chest wall: No suspicious bony lesions. Ribs and thoracic spine appear intact throughout. No axillary or supraclavicular adenopathy. Thyroid gland is enlarged with lobulated appearance and suggestion of hypodense nodule involving lower pole of right thyroid gland measures 1.1 x 1.1 cm in size. Series 2, image 22. Upper Abdomen: Well-circumscribed fluid density areas involving right and left hepatic lobe measures up to 5.8 x 4.9 cm in size in left hepatic lobe series 4, image 124, and up to 2.7 x 3.4 cm in size in right hepatic lobe inferior aspect series 4, image 151, likely represent hepatic cysts. The visualized portion of spleen, pancreas and bilateral adrenal glands shows no gross abnormalities. Nonobstructing bilateral punctate renal calculi are seen. No hydronephrosis. IMPRESSION: 1. No pulmonary emboli. No thoracic aortic aneurysm or dissection. 2. Bilateral lungs are clear. 3. Cardiomegaly, no pericardial effusion. No mediastinal or hilar lymphadenopathy. 4. Suggestion of right thyroid lobe nodule, suggest outpatient ultrasound thyroid gland follow-up. 5. Suggestion of simple appearing hepatic cysts as above. Dictated by: Tonny Diaz M.D. on 08/30/2023 at 11:35 Approved by: Tonny Diaz M.D. on 08/30/2023 at 11:38
[2023-08-30] MEDS: NITROGLYCERIN 0.4 MG SL TAB SL (10:31)
[2023-08-30 11:43] LABS: Troponin I 0.043 ng/mL (0.01-0.034)
[2023-08-30] MEDS: AMLODIPINE 5 MG TABLET PO (12:38)
[2023-08-30] MEDS: ASPIRIN 81 MG CHEW TAB 324 MG PO (13:07)
== END 2023-08-30 13:09 | disposition home or self-care (01) ==
PROVIDERS: Emergency Provider Emergency Medicine; PCP Family Medicine
DX: R07.9 Chest pain, unspecified (principal); I10 Essential (primary) hypertension; E04.1 Nontoxic single thyroid nodule; K76.89 Other specified diseases of liver; M79.662 Pain in left lower leg
CPT/HCPCS: 36415; 71045; 71275; 80053; 82550; 83690; 83880; 84484; 85025; 85610; 85730; 93005; 93010; 93971; 99284; Q9967

== ENCOUNTER 2023-09-05 04:47 | Emergency (ER) | payer BC, SELFPAY ==
[2023-09-05] VITALS (13 sets, daily range): BP systolic 144–184; BP diastolic 65–81; PULSE 58–81; RESP 13–23; TEMP 37.1; O2SAT 97–100; BMI 26.1
--- NOTE | 2023-09-05 04:55 | DI.RAD.S_ITS ---
PROCEDURE: XR CHEST 1V INDICATIONS: chest pain TECHNIQUE: One view of the chest was acquired. COMPARISON: [facility], CR, XR CHEST 1V, 08/30/2023, 9:24. FINDINGS: Surgical changes and devices: None. Lungs and pleura: Lungs are clear. No pleural effusions or pneumothorax. Mediastinum: Mediastinal contours appear normal. Heart size is normal. Bones and chest wall: No suspicious bony lesions. Overlying soft tissues appear unremarkable. IMPRESSION: Stable radiographic evaluation of the chest without acute cardiopulmonary abnormalities or focal airspace disease. No significant discrepancy with the police shift commander radiology preliminary report. Dictated by: Peter Leblanc M.D. on 09/05/2023 at 7:21 Approved by: Peter Leblanc M.D. on 09/05/2023 at 7:21
--- NOTE | 2023-09-05 05:19 | ED_ITS ---
HPI - Chest Pain <DO Shala Lynn Last Filed: 09/06/23 23:19> General Chief Complaint: Chest Pain Stated Complaint: chest pain, back pain Time Seen by Provider: 09/05/23 05:02 Source: patient Mode of arrival: Ambulatory Limitations: no limitations History of Present Illness HPI narrative: Patient is 62 old female history of hypertension, hyperlipidemia, hereditary spherocytosis, mitral valve prolapse presenting today with chest discomfort. She is seen evaluated here on August 30 calf pain was found to have indeterminate troponin. Time cardiology was consulted recommend outpatient stress test. She reports that she is supposed to get scheduled for stress test but has not yet been done. Today she is having left scapular pain. Not really worse when she moves her arm. She describes dyspnea with exertion. No shortness of breath at rest. She actually had a CT angio on the for her calf pain and it was negative. She reports that the calf pain is actually better she is concurrent chest pain she is not been sleep it is all across her chest but definitely dyspneic with exertion. She is described Significant orthopnea. She is no abdominal pain nausea vomiting or fever. Related Data Home Medications Medication Instructions Recorded Confirmed amlodipine 5 mg tablet 5 mg PO DAILY 09/13/19 08/30/23 memantine 5 mg tablet 5 mg PO BID 12/30/20 08/30/23 duloxetine 40 mg capsule,delayed 40 mg PO DAILY 08/30/23 08/30/23 release Previous Rx's Medication Instructions Recorded fluticasone propionate 50 2 spray intranasal DAILY #18.2 mL 09/23/20 mcg/actuation nasal spray,suspension (Flonase Allergy Relief) atorvastatin 40 mg tablet 40 mg PO BEDTIME #30 tabs 08/30/23 Allergies Allergy/AdvReac Type Severity Reaction Status Date / Time ciprofloxacin [From Cipro] AdvReac Intermediate Tendon Verified 08/30/23 07:55 issues metoprolol AdvReac Intermediate heart races Verified 08/30/23 07:55 Sulfa (Sulfonamide AdvReac Intermediate Rash Verified 08/30/23 07:55 Antibiotics) Review of Systems <DO Shala Lynn Last Filed: 09/06/23 23:19> Review of Systems ROS Unobtainable: All systems reviewed & are unremarkable except as noted in HPI and below Patient History <DO Shala Lynn Last Filed: 09/06/23 23:19> Medical History Urgency of micturition Dysuria RLQ abdominal pain Rosacea (~2008) Essential tremor (~2016) Migraines (~1993) Headache Shoulder pain (~2008) Foot pain (~2015) MRSA (methicillin resistant Staphylococcus aureus) Chicken pox Spherocytosis (~1993) Anemia Tinnitus (~2009) Painful menstrual periods (~1998) Ovarian cyst Heavy menstrual period (~1998) Fibroids Kidney stones (~2017) Diverticular disease (~1983) Colon polyps (~2012) Mitral valve prolapse (~1993) Surgical History Anesthesia History of colonoscopy (~10/2012) History of sinus surgery (~01/2012) History of hysteroscopy (~11/2010) Family History Father History of heart disease Mother Atrial fibrillation Diabetes mellitus Thyroid condition Breast cancer Stroke Social History Smoking Status: Former smoker Smoking Status: Former smoker Substance Use Type: does not use Exam <Lucia Coffey DO - Last Filed: 09/06/23 23:19> Initial Vital Signs Initial Vital Signs: Vital Signs Blood Pressure 184/81 H 09/05/23 04:53 GENERAL: Alert pleasant well-appearing 62-year-old and in no acute distress. HEENT: Head atraumatic,EOMI, pupils reactive, face symmetric, moist mucous membranes CARDIOVASCULAR: Regular rate and rhythm without murmurs, rubs or gallops. RESPIRATORY: Breath sounds equal bilaterally, no wheezes rales or rhonchi. ABDOMEN: Soft, nontender. Normoactive bowel sounds all 4 quadrants. No guarding or rebound. EXTREMITIES: Normal range of motion, no clubbing or edema. Neurovascularly intact NEUROLOGICAL: Alert and oriented x4.Normal gait and speech. SKIN: Warm, dry, no laceration, no petechiae, no rashes or lesions. <Lang Scott DO - Last Filed: 09/05/23 09:19> Initial Vital Signs Initial Vital Signs: Vital Signs Blood Pressure 184/81 H 09/05/23 04:53 Course <Lucia Coffey DO - Last Filed: 09/06/23 23:19> Orders Ordered: Discontinued Medications Aspirin (Aspirin 81 Mg Chew Tab) 324 mg PO NOW ONE Stop: 09/05/23 04:56 Last Admin: 09/05/23 07:32 Dose: Not Given Documented By: AMV Vital Signs Vital signs: Vital Signs - 8 hr 09/05/23 04:53 09/05/23 04:54 09/05/23 04:56 Temperature 98.7 F Pulse Rate 79 81 Respiratory Rate 18 Blood Pressure 184/81 H 184/81 H Pulse Oximetry 99 100 Oxygen Delivery Method Room Air 09/05/23 05:00 09/05/23 05:18 09/05/23 05:18 Temperature Pulse Rate 68 67 Respiratory Rate 22 21 Blood Pressure 163/71 H Pulse Oximetry 100 100 Oxygen Delivery Method 09/05/23 05:30 09/05/23 05:30 09/05/23 06:00 Temperature Pulse Rate 67 Respiratory Rate 23 Blood Pressure 162/71 H 147/67 H Pulse Oximetry 99 Oxygen Delivery Method 09/05/23 06:00 09/05/23 06:30 09/05/23 06:30 Temperature Pulse Rate 60 59 L Respiratory Rate 15 17 Blood Pressure 158/72 H Pulse Oximetry 98 99 Oxygen Delivery Method Room Air Room Air <Lang Scott DO - Last Filed: 09/05/23 09:19> Orders Ordered: Discontinued Medications Aspirin (Aspirin 81 Mg Chew Tab) 324 mg PO NOW ONE Stop: 09/05/23 04:56 Last Admin: 09/05/23 07:32 Dose: Not Given Documented By: AMV Vital Signs Vital signs: Vital Signs - 8 hr 09/05/23 04:53 09/05/23 04:54 09/05/23 04:56 Temperature 98.7 F Pulse Rate 79 81 Respiratory Rate 18 Blood Pressure 184/81 H 184/81 H Pulse Oximetry 99 100 Oxygen Delivery Method Room Air 09/05/23 05:00 09/05/23 05:18 09/05/23 05:18 Temperature Pulse Rate 68 67 Respiratory Rate 22 21 Blood Pressure 163/71 H Pulse Oximetry 100 100 Oxygen Delivery Method 09/05/23 05:30 09/05/23 05:30 09/05/23 06:00 Temperature Pulse Rate 67 Respiratory Rate 23 Blood Pressure 162/71 H 147/67 H Pulse Oximetry 99 Oxygen Delivery Method 09/05/23 06:00 09/05/23 06:30 09/05/23 06:30 Temperature Pulse Rate 60 59 L Respiratory Rate 15 17 Blood Pressure 158/72 H Pulse Oximetry 98 99 Oxygen Delivery Method Room Air Room Air MDM - Chest Pain <Lucia Erlinda, DO - Last Filed: 09/06/23 23:19> Lab Data 09/05/23 05:15 09/05/23 05:15 Labs: Lab Results 09/05/23 09/05/23 Range/Units 05:15 07:30 WBC 5.9 (4.5-11.0) X10^3/uL RBC 4.44 (4.0-5.2) X10^6/uL Hgb 13.6 (12.0-16.0) g/dL Hct 37.5 (36-46) % MCV 84.4 (80-100) fL MCH 30.7 (26-34) PG MCHC 36.4 H (30-36) % RDW 16.4 H (11.6-14.8) % Plt Count 224 (150-400) X10^3/uL Neut % (Auto) 77.1 H (50-75) % Lymph % (Auto) 15.5 L (25-40) % Bee % (Auto) 5.8 (3-14) % Eos % (Auto) 1.0 L (2-4) % Baso % (Auto) 0.6 (0-2) % Neut # (Auto) 4600 (1641-5044) /uL Lymph # (Auto) 900 L (8898-0153) /uL Bee # (Auto) 300 (0-900) /uL Eos # (Auto) 100 (0-450) /uL Baso # (Auto) 0 (0-100) /uL PT 11.7 (9.4-12.5) SECONDS INR 1.0 (0.9-1.3) APTT 28 (25.1-36.5) SECONDS D-Dimer 275 (<500) ng/ml Sodium 139 (137-145) mmol/L Potassium 3.6 (3.4-5.1) mmol/L Chloride 105 (98-107) mmol/L Carbon Dioxide 29 (22-32) mmol/L BUN 10 (7-17) mg/dL Creatinine 0.55 (0.52-1.04) mg/dL Estimated GFR > 60 (>60) mL/min BUN/Creatinine Ratio 18.2 (6-22) Glucose 108 (80-110) mg/dL Calcium 9.6 (8.4-10.2) mg/dL Magnesium 2.1 (1.6-2.3) mg/dL Total Bilirubin 1.4 H (0.2-1.3) mg/dL AST 26 (14-36) IU/L ALT 28 (<35) IU/L Alkaline Phosphatase 82 (38-126) U/L Total Creatine Kinase 30 D (30-135) U/L Troponin I 0.037 H 0.036 H (0.01-0.034) ng/mL NT-Pro-B Natriuret Pep 42 (<125) pg/mL Total Protein 7.8 (6.3-8.2) g/dL Albumin 4.6 (3.5-5.0) g/dL Globulin 3.2 (1.7-4.1) g/dL Albumin/Globulin Ratio 1.4 (1.0-2.8) Lipase 107 (23-300) U/L ECG Data Interpretation: Sinus rhythm rate 74 RI interval 134 QRS 70 QTC 417 PVC noted artifact noted previous EKGs normal Normal sinus rhythm rate 67 RI interval 144 QRS [address] changes MDM Narrative Medical decision making narrative: Patient is 62-year-old female presents today with dyspnea with exertion. She was seen evaluated last week she had indeterminate troponins about 10 cardiology was consulted recommend outpatient stress echo. She saw her primary primary thought troponin may be due to blood pressure at the time she actually had hypertension with systolic in the 200s. Today it is 184/81 and has come down to 147/67 without any intervention. She is denying any orthopnea she previously had a negative CT angio. Blood work has been reviewed troponin today is 0.037 previously 0.043 she is a negative BNP and negative D-dimer, no evidence of anemia, no leukocytosis no IBETH creatinine is 0.5 Chest x-ray negative EKG does not show any abnormality At this time repeat troponin at 7 2 may require Cardiology consultation at time. This time I have low concern for pulmonary embolism D-dimer is negative CT angio last week was negative. She is complaining of some shortness of breath exertion but no fever or chills. She is no respiratory distress lungs are clear. No evidence of significant edema. Patient signed out to Dr. Scott <Lang Scott DO - Last Filed: 09/05/23 09:19> Medical Records Data Attestation: I reviewed the patient's medical records. Lab Data Attestation: I reviewed the patient's lab results. Labs: Lab Results 09/05/23 09/05/23 Range/Units 05:15 07:30 WBC 5.9 (4.5-11.0) X10^3/uL RBC 4.44 (4.0-5.2) X10^6/uL Hgb 13.6 (12.0-16.0) g/dL Hct 37.5 (36-46) % MCV 84.4 (80-100) fL MCH 30.7 (26-34) PG MCHC 36.4 H (30-36) % RDW 16.4 H (11.6-14.8) % Plt Count 224 (150-400) X10^3/uL Neut % (Auto) 77.1 H (50-75) % Lymph % (Auto) 15.5 L (25-40) % Bee % (Auto) 5.8 (3-14) % Eos % (Auto) 1.0 L (2-4) % Baso % (Auto) 0.6 (0-2) % Neut # (Auto) 4600 (1535-4006) /uL Lymph # (Auto) 900 L (9594-3328) /uL Bee # (Auto) 300 (0-900) /uL Eos # (Auto) 100 (0-450) /uL Baso # (Auto) 0 (0-100) /uL PT 11.7 (9.4-12.5) SECONDS INR 1.0 (0.9-1.3) APTT 28 (25.1-36.5) SECONDS D-Dimer 275 (<500) ng/ml Sodium 139 (137-145) mmol/L Potassium 3.6 (3.4-5.1) mmol/L Chloride 105 (98-107) mmol/L Carbon Dioxide 29 (22-32) mmol/L BUN 10 (7-17) mg/dL Creatinine 0.55 (0.52-1.04) mg/dL Estimated GFR > 60 (>60) mL/min BUN/Creatinine Ratio 18.2 (6-22) Glucose 108 (80-110) mg/dL Calcium 9.6 (8.4-10.2) mg/dL Magnesium 2.1 (1.6-2.3) mg/dL Total Bilirubin 1.4 H (0.2-1.3) mg/dL AST 26 (14-36) IU/L ALT 28 (<35) IU/L Alkaline Phosphatase 82 (38-126) U/L Total Creatine Kinase 30 D (30-135) U/L Troponin I 0.037 H 0.036 H (0.01-0.034) ng/mL NT-Pro-B Natriuret Pep 42 (<125) pg/mL Total Protein 7.8 (6.3-8.2) g/dL Albumin 4.6 (3.5-5.0) g/dL Globulin 3.2 (1.7-4.1) g/dL Albumin/Globulin Ratio 1.4 (1.0-2.8) Lipase 107 (23-300) U/L [facility] Narrative Medical decision making narrative: Patient is 62-year-old female presents today with dyspnea with exertion. She was seen evaluated last week she had indeterminate troponins about 10 cardiology was consulted recommend outpatient stress echo. She saw her primary primary thought troponin may be due to blood pressure at the time she actually had hypertension with systolic in the 200s. Today it is 184/81 and has come down to 147/67 without any intervention. She is denying any orthopnea she previously had a negative CT angio. Blood work has been reviewed troponin today is 0.037 previously 0.043 she is a negative BNP and negative D-dimer, no evidence of anemia, no leukocytosis no IBETH creatinine is 0.5 Chest x-ray negative EKG does not show any abnormality At this time repeat troponin at 7 2 may require Cardiology consultation at time. This time I have low concern for pulmonary embolism D-dimer is negative CT angio last week was negative. She is complaining of some shortness of breath exertion but no fever or chills. She is no respiratory distress lungs are clear. No evidence of significant edema. Patient signed out to Dr. Tyler scott: Received turned over. Review patient's history and physical and workup up to this point. Patient's blood pressure is now down into the 140s. No specific intervention here in the ER with regard to her high blood pressure. States she has been taking her blood pressure at home since her last visit here approximately 10 days ago. She states that at home her blood pressures have been in the 130s to 140 systolic. She is on 10 of amlodipine. She is asymptomatic at the time of my exam. Troponins here are indeterminate and are unchanged x2. They are lower than what they were 1 week ago. Had a discussion with the patient regarding her symptoms. We discussed transfer for further studies to include a stress echo or a nuclear stress test. The stress test she had back in April was a exercise stress test. She had an echocardiogram but it was not associated with a stress test. Both of which were relatively unremarkable. We are unable to obtain stress imaging studies here at this facility over the weekend. Contacted [facility] which would be ideal for the patient is this is the Cardiology group that she was seen in the past. They have no bed availability. Had a discussion with the patient regarding options to include continuing to look and transfer to another facility versus discharge home and having her have a follow-up at the beginning of next week. Patient opted to be discharged home. We will hold on any changes to her blood pressure medicines for now. She is on an aspirin. She was given return precautions. She expressed understanding and agreement with plan. I did discuss the case with Dr. Rubalcava on-call for cardiology who recommended that the patient have stress imaging studies. He understands current limitations but ideally patient would be admitted for risk stratification. Discharge Plan Departure Patient Disposition: Home Clinical Impression: Atypical chest pain, Hypertension Instructions: DI for Atypical Chest Pain Activity Restrictions/Additional Instructions: Recommend that you continue to take all of your medications as directed. I would recommend that when you return home today that you contact the hospital in order to get your stress test scheduled. Ideally this would be done in the beginning of next week. Return to the emergency department for new or worsening symptoms. Prescriptions: No Action fluticasone propionate [Flonase Allergy Relief] 50 mcg/actuation spray,suspension 2 spray intranasal DAILY Qty: 18.2 0RF Rx Instructions: administer into each nostril memantine 5 mg tablet 5 mg PO BID duloxetine 40 mg capsule,delayed release(DR/EC) 40 mg PO DAILY amlodipine 5 mg tablet 5 mg PO DAILY atorvastatin 40 mg tablet 40 mg PO BEDTIME Qty: 30 0RF Referrals: Mikayla Caba MD [Primary Care Provider] - Stand Alone Forms: Patient Portal/API
[2023-09-05 05:32] LABS: Add Manual Diff / Slide Review NO; Basophils Absolute Auto 0 /uL (0-100); Basophils Percent Auto 0.6 % (0-2); Eosinophils Absolute Auto 100 /uL (0-450); Hematocrit 37.5 % (36-46); Hemoglobin 13.6 g/dL (12.0-16.0); Lymphocytes Absolute Auto 900 /uL (1100-4500); Lymphocytes Percent Auto 15.5 % (25-40); Mean Corpuscular HGB Conc 36.4 % (30-36); Mean Corpuscular Hemoglobin 30.7 PG (26-34); Mean Corpuscular Volume 84.4 fL (80-100); Monocytes Absolute Auto 300 /uL (0-900); Monocytes Percent Auto 5.8 % (3-14); Neutrophils Absolute Auto 4600 /uL (1500-7000); Neutrophils Percent Auto 77.1 % (50-75); Platelet Count 224 X10^3/uL (150-400); Red Blood Cell Count 4.44 X10^6/uL (4.0-5.2); Red Cell Distribution Width 16.4 % (11.6-14.8); White Blood Cell Count 5.9 X10^3/uL (4.5-11.0)
[2023-09-05 05:35] LABS: Prothrombin Time 11.7 SECONDS (9.4-12.5)
[2023-09-05 05:38] LABS: PTT Partial Thromboplastin Tim 28 SECONDS (25.1-36.5)
[2023-09-05 05:43] LABS: Alanine Aminotransferase 28 IU/L (<35); Albumin 4.6 g/dL (3.5-5.0); Albumin Globulin Ratio 1.4 (1.0-2.8); Alkaline Phosphatase 82 U/L (38-126); Aspartate Aminotransferase 26 IU/L (14-36); BUN Creatinine Ratio 18.2 (6-22); Bilirubin Total 1.4 mg/dL (0.2-1.3); Blood Urea Nitrogen 10 mg/dL (7-17); Calcium 9.6 mg/dL (8.4-10.2); Carbon Dioxide 29 mmol/L (22-32); Chloride 105 mmol/L (98-107); Creatine Kinase 30 U/L (30-135); Estimated Glomerular Filt Rate > 60 mL/min (>60); Globulin 3.2 g/dL (1.7-4.1); Glucose 108 mg/dL (80-110); HEMOLYSIS < 15 (0-50); Lipase 107 U/L (23-300); Magnesium 2.1 mg/dL (1.6-2.3); Potassium 3.6 mmol/L (3.4-5.1); Sodium 139 mmol/L (137-145); Total Protein 7.8 g/dL (6.3-8.2)
[2023-09-05 05:46] LABS: D Dimer 275 ng/ml (<500)
[2023-09-05 05:52] LABS: NT-proBNP (BNP-Adult 18+) 42 pg/mL (<125)
[2023-09-05 05:54] LABS: Troponin I 0.037 ng/mL (0.01-0.034)
[2023-09-05 07:59] LABS: Troponin I 0.036 ng/mL (0.01-0.034)
== END 2023-09-05 09:32 | disposition home or self-care (01) ==
PROVIDERS: Emergency Medicine; Emergency Provider Emergency Medicine; PCP Family Medicine
DX: R07.89 Other chest pain (principal); I10 Essential (primary) hypertension; Z87.891 Personal history of nicotine dependence
CPT/HCPCS: 36415; 71045; 80053; 82550; 83690; 83735; 83880; 84484; 85025; 85379; 85610; 85730; 93005; 99284

== ENCOUNTER 2024-03-07 04:52 | Emergency (ER) | payer BC, SELFPAY ==
--- NOTE | 2024-03-07 05:04 | ED.GENADULT ---
HPI - General Adult General Stated complaint: fever, cough, aches Time Seen by Provider: 03/07/24 04:53 Source: patient Mode of arrival: Ambulatory Limitations: no limitations History of Present Illness HPI narrative: Patient is a 63-year-old female who 9 days ago started to have URI like symptoms. Approximately 4 days ago patient was seen and tested. She was positive for parainfluenza virus. She was also started on antibiotics for a presumed bacterial infection as well. Since that time patient has continued to have fevers and cough and body aches. Is now productive cough. No underlying lung pathology. She has been taking all of your medications as directed. Related Data Home Medications Medication Instructions Recorded Confirmed amlodipine 5 mg tablet 5 mg PO DAILY 09/13/19 08/30/23 memantine 5 mg tablet 5 mg PO BID 12/30/20 08/30/23 duloxetine 40 mg capsule,delayed 40 mg PO DAILY 08/30/23 08/30/23 release Previous Rx's Medication Instructions Recorded fluticasone propionate 50 2 spray intranasal DAILY #18.2 mL 09/23/20 mcg/actuation nasal spray,suspension (Flonase Allergy Relief) atorvastatin 40 mg tablet 40 mg PO BEDTIME #30 tabs 08/30/23 benzonatate 100 mg capsule 100 mg PO BID-TID PRN cough #10 03/07/24 caps Allergies Allergy/AdvReac Type Severity Reaction Status Date / Time ciprofloxacin [From Cipro] AdvReac Intermediate Tendon Verified 12/07/23 16:10 issues metoprolol AdvReac Intermediate heart races Verified 12/07/23 16:10 Sulfa (Sulfonamide AdvReac Intermediate Rash Verified 12/07/23 16:10 Antibiotics) Review of Systems Review of Systems Narrative: See HPI Patient History Medical History Urgency of micturition Dysuria RLQ abdominal pain Rosacea (~2008) Essential tremor (~2016) Migraines (~1993) Headache Shoulder pain (~2008) Foot pain (~2015) MRSA (methicillin resistant Staphylococcus aureus) Chicken pox Spherocytosis (~1993) Anemia Tinnitus (~2009) Painful menstrual periods (~1998) Ovarian cyst Heavy menstrual period (~1998) Fibroids Kidney stones (~2017) Diverticular disease (~1983) Colon polyps (~2012) Mitral valve prolapse (~1993) Surgical History Anesthesia History of colonoscopy (~10/2012) History of sinus surgery (~01/2012) History of hysteroscopy (~11/2010) Family History Father History of heart disease Mother Atrial fibrillation Diabetes mellitus Thyroid condition Breast cancer Stroke Social History Smoking Status: Former smoker Smoking Status: Former smoker Substance Use Type: does not use Exam Const General: cooperative, comfortable and No ill appearing HENMT Head: normal to inspection and normocephalic Resp Effort & Inspection: normal respiratory effort Auscultation: clear to auscultation bilaterally, no rales, no rhonchi and no wheezes Cardio Rate: regular rate Skin General: no rashes or lesions noted Medical Decision Making MDM Narrative Medical decision making narrative: Patient has a known parainfluenza virus and also is currently taking antibiotics that would be appropriate for any bacterial infection. Lungs are clear. Not hypoxic. Not tachypneic. No indication to change any these antibiotics as this is most likely a viral infection anyway given her previous lab results. No indication for chest x-ray today. I reassured patient that her symptoms should start to improve. Will send home with medication to help with the cough. She was given return precautions and follow-up instructions. She expressed understanding and agreement Discharge Plan Departure Patient Disposition: Home Clinical Impression: Infection due to parainfluenza virus 3 Instructions: Cough Activity Restrictions/Additional Instructions: Do recommend that you continue to take all of your medications as directed. Contact your primary care doctor for follow-up. Return to the emergency department for new symptoms. Prescriptions: New benzonatate 100 mg capsule 100 mg PO BID-TID PRN (Reason: cough) Qty: 10 0RF No Action fluticasone propionate [Flonase Allergy Relief] 50 mcg/actuation spray,suspension 2 spray intranasal DAILY Qty: 18.2 0RF Rx Instructions: administer into each nostril memantine 5 mg tablet 5 mg PO BID duloxetine 40 mg capsule,delayed release(DR/EC) 40 mg PO DAILY amlodipine 5 mg tablet 5 mg PO DAILY atorvastatin 40 mg tablet 40 mg PO BEDTIME Qty: 30 0RF Referrals: Mikayla Caba MD [Primary Care Provider] - Stand Alone Forms: Patient Portal/API
[2024-03-07 05:42] VITALS: BP 140/94; PULSE 96; RESP 16; TEMP 36.8; O2SAT 99; BMI 27.1
[2024-03-07 05:58] VITALS: BP 156/68; PULSE 84; RESP 16; O2SAT 98
== END 2024-03-07 06:01 | disposition home or self-care (01) ==
PROVIDERS: Emergency Provider Emergency Medicine; PCP Family Medicine
DX: B34.8 Other viral infections of unspecified site (principal)
CPT/HCPCS: 99281; 99282

== ENCOUNTER → 2024-03-27 15:09 | Outpatient (CLI) | payer BC, SELFPAY ==
[2024-03-27 15:52] LABS: Influenza A - CEPHEID Flu A NEGATIVE (NEGATIVE); Influenza B - CEPHEID Flu B NEGATIVE (NEGATIVE); Respiratory Syncytial Virus Negative (Negative)
[2024-03-27 15:57] LABS: COVID-19 CEPHEID 4-PLEX PCR POSITIVE (Negative)
== END ==
PROVIDERS: PCP Family Medicine; Visit Provider Nurse Practitioner Family
DX: R05.9 Cough, unspecified (principal)
CPT/HCPCS: 0241U

== ENCOUNTER → 2024-03-27 15:10 | Outpatient (CLI) | payer BC, SELFPAY ==
--- NOTE | 2024-03-27 15:11 | DI.RAD.S_ITS ---
PROCEDURE: XR CHEST 2V INDICATIONS: Cough TECHNIQUE: 2 views of the chest were acquired. COMPARISON: [facility], CR, XR CHEST 1V, 09/05/2023, 5:12. FINDINGS: Surgical changes and devices: None. Lungs and pleura: Lungs are clear. No pleural effusions or pneumothorax. Mediastinum: Mediastinal contours are normal. Heart size is normal. Bones and chest wall: No suspicious bony abnormalities. Soft tissues appear unremarkable. IMPRESSION: No acute cardiopulmonary abnormality is seen. Dictated by: Yaneli Garcia M.D. on 03/28/2024 at 7:49 Approved by: Yaneli Garcia M.D. on 03/28/2024 at 7:49
== END ==
PROVIDERS: PCP Family Medicine; Referring Provider Nurse Practitioner Family; Visit Provider Nurse Practitioner Family
DX: R05.9 Cough, unspecified (principal)
CPT/HCPCS: 0241U; 71046

== ENCOUNTER → 2025-01-28 07:46 | Outpatient (CLI) | payer BC, SELFPAY | PROVIDERS: PCP Family Medicine; Visit Provider Nurse Practitioner Family | DX: N39.0 Urinary tract infection, site not specified (principal) | CPT/HCPCS: 87086 ==

== ENCOUNTER → 2025-02-08 07:12 | Outpatient (CLI) | payer BC, SELFPAY ==
[2025-02-08 08:12] LABS: Add Manual Diff / Slide Review NO; Basophils Absolute Auto 0 /uL (0-100); Basophils Percent Auto 0.5 % (0-2); Eosinophils Absolute Auto 100 /uL (0-450); Eosinophils Percent Auto 1.2 % (2-4); Hematocrit 39.8 % (36-46); Hemoglobin 14.1 g/dL (12.0-16.0); Lymphocytes Absolute Auto 1100 /uL (1100-4500); Lymphocytes Percent Auto 20.3 % (25-40); Mean Corpuscular HGB Conc 35.4 % (30-36); Mean Corpuscular Hemoglobin 30.1 PG (26-34); Monocytes Absolute Auto 300 /uL (0-900); Monocytes Percent Auto 4.9 % (3-14); Neutrophils Absolute Auto 4000 /uL (1500-7000); Neutrophils Percent Auto 73.1 % (50-75); Platelet Count 229 X10^3/uL (150-400); Red Blood Cell Count 4.69 X10^6/uL (4.0-5.2); Red Cell Distribution Width 16.3 % (11.6-14.8); White Blood Cell Count 5.5 X10^3/uL (4.5-11.0)
[2025-02-08 08:22] LABS: Alanine Aminotransferase 26 IU/L (<35); Albumin 4.8 g/dL (3.5-5.0); Albumin Globulin Ratio 1.7 (1.0-2.8); Alkaline Phosphatase 88 U/L (38-126); Aspartate Aminotransferase 27 IU/L (14-36); BUN Creatinine Ratio 19.4 (6-22); Bilirubin Total 1.4 mg/dL (0.2-1.3); Blood Urea Nitrogen 13 mg/dL (7-17); Calcium 9.6 mg/dL (8.4-10.2); Carbon Dioxide 29 mmol/L (22-32); Chloride 102 mmol/L (98-107); Cholesterol 222 mg/dL (140-199); Estimated Glomerular Filt Rate > 60 mL/min (>60); Globulin 2.8 g/dL (1.7-4.1); Glucose 97 mg/dL (70-99); HDL Cholesterol 67 mg/dL (40-60); HEMOLYSIS < 15 (0-50); LDL Cholesterol Calculated 140 mg/dL (<100); Sodium 139 mmol/L (137-145); Total Protein 7.6 g/dL (6.3-8.2); Triglycerides 77 mg/dL (35-150)
[2025-02-08 08:36] LABS: Vitamin D 25 Hydroxy (D3) 36.8 ng/mL (30.0-100.0)
[2025-02-08 08:37] LABS: Follicle Stimulating Hormone 63.7 mIU/mL
[2025-02-08 08:53] LABS: TSH w/ Reflex to FT4 1.28 uIU/mL (0.47-4.68)
[2025-02-09 04:36] LABS: CRP, High Sensitivity 2.99 mg/L (0.00-3.00)
[2025-02-09 06:05] LABS: Dehydroepiandrosterone Sulfate 39.4 ug/dL (29.4-220.5)
== END ==
PROVIDERS: PCP Family Medicine; Referring Provider Family Medicine; Visit Provider Family Medicine
DX: I10 Essential (primary) hypertension (principal); D64.9 Anemia, unspecified; N95.9 Unspecified menopausal and perimenopausal disorder; R53.83 Other fatigue; E55.9 Vitamin D deficiency, unspecified
CPT/HCPCS: 36415; 80053; 80061; 82306; 82627; 83001; 83525; 84443; 85025; 86140

== ENCOUNTER → 2025-02-12 07:52 | Outpatient (CLI) | payer BC, SELFPAY | PROVIDERS: PCP Family Medicine; Referring Provider Family Medicine; Visit Provider Family Medicine | DX: D64.9 Anemia, unspecified (principal); I10 Essential (primary) hypertension; N95.9 Unspecified menopausal and perimenopausal disorder; R53.83 Other fatigue; E55.9 Vitamin D deficiency, unspecified | CPT/HCPCS: 36415; 83525 ==

== ENCOUNTER 2025-03-25 14:32 | Emergency (ER) | payer BC, SELFPAY ==
[2025-03-25] VITALS (15 sets, daily range): BP systolic 146–209; BP diastolic 64–84; PULSE 49–80; RESP 12–33; TEMP 36.8–37.2; O2SAT 95–100; BMI 27.1
--- NOTE | 2025-03-25 14:50 | DI.RAD.S_ITS ---
PROCEDURE: XR CHEST 1V INDICATIONS: Chest Pain TECHNIQUE: One view of the chest was acquired. COMPARISON: [facility], CR, XR CHEST 2V, 03/27/2024, 15:23. FINDINGS: Surgical changes and devices: None. Lungs and pleura: Lungs are clear. No pleural effusions or pneumothorax. Mediastinum: Mediastinal contours appear normal. Heart size is normal. Bones and chest wall: No suspicious bony lesions. Overlying soft tissues appear unremarkable. IMPRESSION: No acute pulmonary process. Dictated by: Keeley Horvath M.D. on 03/25/2025 at 15:20 Approved by: Keeley Horvath M.D. on 03/25/2025 at 15:21
--- NOTE | 2025-03-25 14:50 | EKG_ITS ---
[address] [address] Test Date: 2025-03-25 Pat Name: Verónica Campbell Department: Room: Gender: Female Head Bucker: RACHEL : 1960 Requested By: Order Number: [id number] Reading MD: Lawrence Watson MD Measurements Intervals [place] Rate: 59 P: 40 AL: 136 QRS: 27 QRSD: 84 T: 42 QT: 414 QTc: 409 Interpretive Statements Sinus bradycardia Electronically Signed On 03-25-2025 17:12:15 PDT by Lawrence Watson MD
[2025-03-25] MEDS: ASPIRIN 81 MG CHEW TAB 324 MG PO (14:57)
--- NOTE | 2025-03-25 15:03 | ED.CHESTPAIN ---
HPI - Chest Pain General Chief Complaint: Chest Pain Stated Complaint: chest pressure, malaise Time Seen by Provider: 03/25/25 14:42 Source: patient Mode of arrival: Ambulatory Limitations: no limitations History of Present Illness HPI narrative: 64-year-old female history of migraine, endometrial syndrome status post ablation, hypertension, presents with midsternal chest pain that radiates to the head that lasted briefly for 10 seconds described as a hot burning sensation but now has a migraine headache and still residual chest discomfort 12/13 at this time. Patient was driving at the time when this occurred but at this time denies any shortness breath dyspnea on exertion leg pain leg swelling fever chills stiff neck rash but is nauseous but no vomiting, diarrhea or constipation. Other than what is stated 14 point review of system is negative. Related Data Home Medications ?Medication ?Instructions ?Recorded ?Confirmed losartan 25 mg tablet 25 mg PO DAILY 11/24/24 02/16/25 hydrocodone 5 mg-acetaminophen 325 1 tab PO DAILY PRN 01/28/25 02/16/25 mg tablet omeprazole 20 mg capsule,delayed 20 mg PO DAILY 01/28/25 02/16/25 release Previous Rx's ?Medication ?Instructions ?Recorded amlodipine 5 mg tablet 5 mg PO DAILY #90 tabs 02/10/25 Allergies Allergy/AdvReac Type Severity Reaction Status Date / Time ciprofloxacin (From Cipro) AdvReac Intermediate Tendon Verified 03/25/25 14:51 issues metoprolol AdvReac Intermediate heart races Verified 03/25/25 14:51 Sulfa (Sulfonamide AdvReac Intermediate Rash Verified 03/25/25 14:51 Antibiotics) Review of Systems Review of Systems ROS Unobtainable: All systems reviewed & are unremarkable except as noted in HPI and below Patient History Medical History Urgency of micturition Dysuria RLQ abdominal pain Rosacea (~2008) Essential tremor (~2016) Migraines (~1993) Headache Shoulder pain (~2008) Foot pain (~2015) MRSA (methicillin resistant Staphylococcus aureus) Chicken pox Spherocytosis (~1993) Anemia Tinnitus (~2009) Painful menstrual periods (~1998) Ovarian cyst Heavy menstrual period (~1998) Fibroids Kidney stones (~2017) Diverticular disease (~1983) Colon polyps (~2012) Mitral valve prolapse (~1993) Surgical History Anesthesia History of colonoscopy (~10/2012) History of sinus surgery (~01/2012) History of hysteroscopy (~11/2010) Family History Father History of heart disease Mother Atrial fibrillation Diabetes mellitus Thyroid condition Breast cancer Stroke Social History other: Moved from [place] Smoking Status: Unknown if ever smoked Smoking Status: Unknown if ever smoked Exam Narrative Exam Narrative: GENERAL: [64] year old patient appears stated age. Well-developed patient, in mild distress. HEAD: Atraumatic. Normocephalic. EYES: Pupils equal round and reactive. Extraocular motions intact. No scleral icterus. No injection or drainage. ENT: Nose without bleeding, purulent drainage. Throat without erythema, tonsillar hypertrophy or exudate. Airway patent. NECK: Trachea midline. Non tender CARDIOVASCULAR: Regular rate and rhythm without murmurs, gallops, or rubs. RESPIRATORY: Clear to auscultation. Breath sounds equal bilaterally. No wheezes, rales, or rhonchi. GASTROINTESTINAL: Abdomen soft, non-tender, nondistended. EXTREMITIES: No edema or joint tenderness. BACK: Nontender without deformity or crepitance. No flank tenderness. NEURO: AOx3. SKIN: No rash or erythema of visible areas Initial Vital Signs Initial Vital Signs: Vital Signs Temperature 98.9 F 03/25/25 14:33 Pulse Rate 80 03/25/25 14:33 Respiratory Rate 20 03/25/25 14:33 Blood Pressure 209/84 H 03/25/25 14:33 Pulse Oximetry 97 03/25/25 14:33 Oxygen Delivery Method Room Air 03/25/25 14:33 Scores HEART Score Heart Score history: Slightly Suspicious Heart Score EKG: Normal Heart Score Age: 45-64 years old Heart Score risk factors: 1-2 risk factors Heart Score troponin: < or = to normal limit Heart Score Total: 2 Course Orders Ordered: ED Orders 03/25/25 14:50 XR chest 1V Stat Complete Blood Count AUTO DIFF Stat Comprehensive Metabolic Panel Stat Lipase Stat Magnesium Stat NT-proBNP (BNP-Adult 18+) Stat PTT Partial Thromboplastin Reuben Stat Prothrombin Time INR Stat Troponin & CK Cardiac Panel Stat EKG-12 Lead Stat Discontinued Medications Aspirin (Aspirin 81 Mg Chew Tab) 324 mg PO NOW ONE Stop: 03/25/25 14:51 Last Admin: 03/25/25 14:57 Dose: 324 mg Documented By: ROXANNE Vital Signs Vital signs: Vital Signs - 8 hr 03/25/25 14:33 03/25/25 14:45 03/25/25 14:45 Temperature 98.9 F Pulse Rate 80 80 Respiratory Rate 20 33 H Blood Pressure 209/84 H 209/84 H Pulse Oximetry 97 95 Oxygen Delivery Method Room Air 03/25/25 14:59 03/25/25 15:00 Temperature Pulse Rate 66 Respiratory Rate 29 H Blood Pressure 176/74 H Pulse Oximetry 100 Oxygen Delivery Method [facility] - Chest Pain Lab Data 03/25/25 14:50 03/25/25 14:50 Imaging Data Chest x-ray: Radiologist's Impression: [address] [address] XRay Report Signed Patient: Verónica Campbell MR#: [id number] : 1960 Acct:[id number] Age/Sex: 64 / F Date of Service: 03/25/25 Loc: ED Accession Number: [id number] Procedure: XR chest 1V Ordering Provider: Lawrence Joe D.O. PROCEDURE: XR CHEST 1V INDICATIONS: Chest Pain TECHNIQUE: One view of the chest was acquired. COMPARISON: [facility], , XR CHEST 2V, 03/27/2024, 15:23. FINDINGS: Surgical changes and devices: None. Lungs and pleura: Lungs are clear. No pleural effusions or pneumothorax. Mediastinum: Mediastinal contours appear normal. Heart size is normal. Bones and chest wall: No suspicious bony lesions. Overlying soft tissues appear unremarkable. IMPRESSION: No acute pulmonary process. ECG Data Interpretation: Sinus Maicol HR 59 HI 136 QRS [address]-t wave change Unchanged from 09/05/23 [facility] Narrative Medical decision making narrative: All vital signs ,nurse triage note, medication list, previous ER visits, and all imaging studies reviewed. Troponin less than 0.012 2nd set 0.014. Glucose 130 EKG 2 EKG showed sinus Maicol heart rate of [address] T wave changes. Differential diagnosis includes STEMI in NSTEMI GERD acid reflux atypical migraine uncontrolled hypertension anxiety. Heart score 2.0 Patient will follow up with PCP in next 1-2 weeks for re-evaluation Discharge Plan Departure Patient Disposition: Home Clinical Impression: Chest pain Qualifiers: Chest pain type: chest pain on breathing Qualified Code(s): R07.1 - Chest pain on breathing Hypertension Qualifiers: Hypertension type: primary hypertension Qualified Code(s): I10 - Essential (primary) hypertension Instructions: DI for Chest Pain Activity Restrictions/Additional Instructions: Return with new or worsening symptoms. Follow up with PCP in 1-2 weeks for blood pressure recheck. Prescriptions: No Action hydrocodone-acetaminophen 5-325 mg tablet 1 tab PO DAILY PRN omeprazole 20 mg capsule,delayed release(DR/EC) 20 mg PO DAILY losartan 25 mg tablet 25 mg PO DAILY amlodipine 5 mg tablet 5 mg PO DAILY Qty: 90 1RF Referrals: Arpita Key DO [Primary Care Provider, Medical] Stand Alone Forms: Patient Portal/API
[2025-03-25 15:08] LABS: Add Manual Diff / Slide Review NO; Basophils Absolute Auto 0 /uL (0-100); Basophils Percent Auto 0.6 % (0-2); Eosinophils Absolute Auto 100 /uL (0-450); Eosinophils Percent Auto 0.8 % (2-4); Hematocrit 40.4 % (36-46); Hemoglobin 14.2 g/dL (12.0-16.0); Lymphocytes Absolute Auto 1100 /uL (1100-4500); Lymphocytes Percent Auto 16.6 % (25-40); Mean Corpuscular HGB Conc 35.1 % (30-36); Mean Corpuscular Hemoglobin 30.1 PG (26-34); Mean Corpuscular Volume 85.6 fL (80-100); Monocytes Absolute Auto 400 /uL (0-900); Monocytes Percent Auto 5.6 % (3-14); Neutrophils Absolute Auto 5200 /uL (1500-7000); Neutrophils Percent Auto 76.4 % (50-75); Platelet Count 255 X10^3/uL (150-400); Red Blood Cell Count 4.72 X10^6/uL (4.0-5.2); Red Cell Distribution Width 16.6 % (11.6-14.8); White Blood Cell Count 6.9 X10^3/uL (4.5-11.0)
[2025-03-25 15:13] LABS: Alanine Aminotransferase 22 IU/L (<35); Albumin Globulin Ratio 1.7 (1.0-2.8); Alkaline Phosphatase 86 U/L (38-126); Aspartate Aminotransferase 28 IU/L (14-36); BUN Creatinine Ratio 12.3 (6-22); Bilirubin Total 1.8 mg/dL (0.2-1.3); Blood Urea Nitrogen 8 mg/dL (7-17); Calcium 9.9 mg/dL (8.4-10.2); Carbon Dioxide 28 mmol/L (22-32); Chloride 102 mmol/L (98-107); Creatine Kinase 32 U/L (30-135); Estimated Glomerular Filt Rate > 60 mL/min (>60); Globulin 2.9 g/dL (1.7-4.1); Glucose 132 mg/dL (70-99); HEMOLYSIS < 15 (0-50); Lipase 77 U/L (23-300); Magnesium 1.9 mg/dL (1.6-2.3); Potassium 3.4 mmol/L (3.4-5.1); Sodium 138 mmol/L (137-145); Total Protein 7.9 g/dL (6.3-8.2)
[2025-03-25] MEDS: ACETAMINOPHEN 325 MG TABLET 975 MG PO (15:23)
[2025-03-25 15:26] LABS: NT-proBNP (BNP-Adult 18+) 112 pg/mL (<125); Troponin I < 0.012 ng/mL (0.01-0.034)
[2025-03-25 15:35] LABS: Prothrombin Time 11.6 SECONDS (9.4-12.5)
[2025-03-25 15:38] LABS: PTT Partial Thromboplastin Tim 30 SECONDS (25.1-36.5)
--- NOTE | 2025-03-25 16:53 | EKG_ITS ---
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
[2025-03-25 17:14] LABS: Troponin I 0.014 ng/mL (0.01-0.034)
== END 2025-03-25 17:48 | disposition home or self-care (01) ==
PROVIDERS: Emergency Provider Family Medicine; PCP Family Medicine
DX: R07.1 Chest pain on breathing (principal); I10 Essential (primary) hypertension; R00.1 Bradycardia, unspecified
CPT/HCPCS: 36415; 71045; 80053; 82550; 83690; 83735; 83880; 84484; 85025; 85610; 85730; 93005; 93010; 99284

== ENCOUNTER 2025-07-10 05:23 | Emergency (ER) | payer BC, SELFPAY ==
[2025-07-10] VITALS (8 sets, daily range): BP systolic 153–217; BP diastolic 67–85; PULSE 52–68; RESP 16; TEMP 36.6; O2SAT 96–100; BMI 26.6
--- NOTE | 2025-07-10 05:53 | ED_ITS ---
HPI - Headache General Chief Complaint: Headache Stated Complaint: Stabbing behind head, nausea Time Seen by Provider: 07/10/25 05:29 Mode of arrival: Ambulatory History of Present Illness HPI Narrative: 64-year-old female with history of recurrent migraine headaches, typically frontal and top of her head, since yesterday afternoon having a sharp stabbing like sensation to the right occiput, some nausea without emesis. No focal weakness to face arm or leg. No focal numbness to face arm or leg. Denies photophobia or neck pain. Moves neck well. No injury or trauma. No blood thinner medications taken. Related Data Home Medications ?Medication ?Instructions ?Recorded ?Confirmed losartan 25 mg tablet 25 mg PO DAILY 11/24/2411/30 omeprazole 20 mg capsule,delayed 20 mg PO DAILY 07/07/25 release Previous Rx's ?Medication ?Instructions ?Recorded amlodipine 5 mg tablet 5 mg PO DAILY #90 tabs 02/10 hydrocodone 5 mg-acetaminophen 325 1 tab PO ONCE PRN S evere and neck 05/11/25 mg tablet pain #14 tabs ondansetron 4 mg disintegrating 4 mg PO Q8H #7 tabs tablet estradiol 0.01% (0.1 mg/gram) See Rx Instructions .Rou te 07/07/25 vaginal cream .COMPLEX #90 days Allergies Allergy/AdvReac Type Severity Reaction Status Date / Time ciprofloxacin (From Cipro) AdvReac Intermediate Tendon Verified 07/10/25 05:32 issues metoprolol AdvReac Intermediate heart races Verified 07/10/25 05:32 Sulfa (Sulfonamide AdvReac Intermediate Rash Verified 07/10/25 05:32 Antibiotics) Patient History Medical History (Updated 07/10/25 @ 09:30 by Claudia Briggs MD) Urgency of micturition Rosacea (~2008) Essential tremor (~2016) Migraines (~1993) Headache Shoulder pain (~2008) Foot pain (~2015) MRSA (methicillin resistant Staphylococcus aureus) Chicken pox Spherocytosis (~1993) Anemia Tinnitus (~2009) Painful menstrual periods (~1998) Ovarian cyst Heavy menstrual period (~1998) Fibroids Kidney stones (~2017) Diverticular disease (~1983) Colon polyps (~2012) Mitral valve prolapse (~1993) Surgical History (Updated 07/07/25 @ 17:45 by Arpita Key DO) [place] teeth removed Anesthesia History of colonoscopy (~10/2012) History of sinus surgery (~01/2012) History of hysteroscopy (~11/2010) Family History Father History of heart disease Mother Atrial fibrillation Diabetes mellitus Thyroid condition Breast cancer Stroke Social History (Updated 07/07/25 @ 07:58 by Malgorzata Barber CMA) marital status: number of children: 2 household members: spouse lives independently: Yes caregiver/support person: No housing: apartment pets and animals: No education level: college occupational status: unemployed current occupational exposures/hazards: No anabella/restoration: [employer] special anabella needs: No travel history: recent leisure activities: sports, exercise, music, games, reading and volunteer work other: Moved from [place] seatbelt use: always water heater temp set < 120 deg: Yes working smoke detector in home: Yes fire extinguisher in home: No carbon monox detector in home: Yes firearms in home: No do you feel safe at home: Yes Smoking Status: Former smoker second hand exposure: No alcohol intake: former substance use type: painkillers during the past year weight has: remained stable well-balanced diet: daily or most days daily servings fruits/ve-4 caffeine: No eating out: 1-3 times/week Type(s) of exercise: walking, aerobic, regular exercise, advised to exercise at least 150 min/week (moderate intensity aerobic) and additional frequency: daily duration: 45-60 minutes/day Smoking Status: Former smoker tobacco type: cigarettes Exam Narrative Exam Narrative: GENERAL: Well-developed patient, in mild distress. HEAD: Atraumatic. Normocephalic. EYES: Pupils equal round and reactive. Extraocular motions intact. No scleral icterus. No injection or drainage. ENT: Nose without bleeding, purulent drainage. Throat without erythema, tonsillar hypertrophy or exudate. Airway patent. NECK: Trachea midline. Moves neck well, [id number] and chin to chest, without distress. No nuchal rigidity. CARDIOVASCULAR: Regular rate and rhythm without murmurs, gallops, or rubs. RESPIRATORY: Clear to auscultation. Breath sounds equal bilaterally. No wheezes, rales, or rhonchi. GASTROINTESTINAL: Abdomen soft, non-tender, nondistended. EXTREMITIES: No edema or joint tenderness. BACK: Nontender without deformity or crepitance. No flank tenderness. NEURO: AOx3. Motor functions grossly nonfocal. SKIN: No rash or erythema of visible areas Initial Vital Signs Initial Vital Signs: Vital Signs Temperature 98 F 07/10/25 05:32 Pulse Rate 62 07/10/25 05:32 Respiratory Rate 16 07/10/25 05:32 Blood Pressure 173/75 H 07/10/25 05:32 Pulse Oximetry 100 07/10/25 05:32 Oxygen Delivery Method Room Air 07/10/25 05:32 Course Orders Ordered: ED Orders 07/10/25 08:31 CT head/brain wo con Stat Discontinued Medications Ketorolac Tromethamine (Ketorolac 30 Mg/Ml Vial) 15 mg IV NOW ONE Stop: 07/10/25 05:58 Last Admin: 07/10/25 07:44 Dose: Not Given Documented By: AB Ketorolac Tromethamine (Ketorolac 30 Mg/Ml Vial) 30 mg IM NOW ONE Stop: 07/10/25 07:00 Last Admin: 07/10/25 07:45 Dose: Not Given Documented By: AB Ketorolac Tromethamine (Ketorolac 30 Mg/Ml Vial) 15 mg IV NOW ONE Stop: 07/10/25 07:47 Last Admin: 07/10/25 07:51 Dose: 15 mg Documented By: ES Vital Signs Vital signs: Vital Signs - 8 hr 07/10/25 08:19 07/10/25 08:20 07/10/25 08:20 Pulse Rate 57 L Blood Pressure 174/75 H Pulse Oximetry 100 96 Oxygen Delivery Method 07/10/25 08:30 07/10/25 08:31 07/10/25 08:31 Pulse Rate 68 58 L Blood Pressure 217/85 H Pulse Oximetry 98 98 Oxygen Delivery Method 07/10/25 08:58 07/10/25 08:58 07/10/25 09:00 Pulse Rate 53 L Blood Pressure 171/74 H 159/72 H Pulse Oximetry 100 Oxygen Delivery Method 07/10/25 09:00 07/10/25 09:30 07/10/25 09:30 Pulse Rate 52 L 55 L Blood Pressure 153/67 H Pulse Oximetry 98 98 Oxygen Delivery Method 07/10/25 09:36 Pulse Rate Blood Pressure Pulse Oximetry Oxygen Delivery Method Room Air MDM - Headache MDM Narrative Medical decision making narrative: 64-year-old female with history of recurrent migraine headaches, right parietal nontraumatic pain to the head, no injury, does not take blood thinner medications, nonfocal exam. Afebrile, sirs screen negative. We discussed advanced brain imaging, hold for now. Trial of medications, discussed options, declines Compazine/Benadryl, okay with Toradol, hold steroids. Initially had IV access then lost. Will order IM Toradol. 714, await response to intramuscular Toradol injection, not yet given, signed out to Dr Winchester. Discharge Plan Departure Patient Disposition: Home Clinical Impression: Chronic headache Instructions: DI for Headache Activity Restrictions/Additional Instructions: I think based on your exam and your history that you are likely suffering from a cervicogenic or musculoskeletal cause of your pain. For pain please take ibuprofen 800 mg every 8 hours, acetaminophen 1000 mg every 6 hours. You may find topical therapy such as heat/ice, menthol, lidocaine or diclofenac ointment helpful Please follow-up with your family doctor for recheck of your headache. Return to the emergency department for severe worsening headache or new symptoms such as disturbances in speech or vision, weakness, numbness or tingling, fever, or other symptoms that are concerning to you Prescriptions: No Action omeprazole 20 mg capsule,delayed release(DR/EC) 20 mg PO DAILY losartan 25 mg tablet 25 mg PO DAILY amlodipine 5 mg tablet 5 mg PO DAILY Qty: 90 1RF estradiol 0.01 % (0.1 mg/gram) cream See Rx Instructions .ROUTE .COMPLEX Qty: 90 3RF Rx Instructions: Apply 1-2g vaginally and around clitoris and urethra 2-3x/wk. Compounded estradiol 0.125% cream in hypoallergenic base. hydrocodone-acetaminophen 5-325 mg tablet 1 tab PO ONCE MDD 5mg hydrocodone PRN (Reason: Severe and neck pain) Qty: 14 0RF ondansetron 4 mg tablet,disintegrating 4 mg PO Q8H Qty: 7 1RF Referrals: Arpita Key DO [Primary Care Provider, Medical] Stand Alone Forms: Patient Portal/API
[2025-07-10] MEDS: KETOROLAC 30 MG/ML VIAL 15 MG IV (07:51)
--- NOTE | 2025-07-10 08:22 | PM.EVENT ---
Event Note Event Note (Rapid Response, Code, or fall): Patient received in sign-out at change of shift pending re-evaluation after injection of intramuscular Toradol Patient reports is a daily? migraine? suffer and has tried multiple different types of medications for headaches such as Lyrica, Neurontin, beta-fantasma she thinks and that none of these have been effective. She also undergoes OMT and Botox injections. She is seeing her family doctor on Friday and hoping to get a referral to Neurology. On reassessment after Toradol her typical migraine which is more frontal and facial pain has resolved completely however she still has a stabbing quality type pain in her occipital area. Did offer additional IV medication or greater occipital nerve block but She does not desire anything for pain as it is quite mild but ?just wants to make sure everything is okay. ? We revisited again doing some advanced imaging which I think is reasonable in this patient who has chronic headache sufferer with the change in pattern and severity of her headaches. CT head is negative. Patient reassured. She has an appointment with her PCP early this week. Return precautions discussed and provided prior to discharge
--- NOTE | 2025-07-10 08:31 | DI.CT.S_ITS ---
PROCEDURE: CT HEAD/BRAIN WO CON INDICATIONS: chronic jang with new pattern/more severe TECHNIQUE: Noncontrast 4.5 mm thick angled axial sections acquired from the foramen magnum to the vertex, with coronal and sagittal reformats. For radiation dose reduction, the following was used: automated exposure control, adjustment of mA and/or kV according to patient size. COMPARISON: None. FINDINGS: Image quality: Diagnostic. CSF spaces: Basal cisterns are patent. No extra-axial fluid collections. Ventricles are normal in size and shape. Brain: No midline shift. No intracranial mass effect or hemorrhage. Garcia- white matter interface is normal. Skull and face: Calvarium and visualized facial bones are intact, without suspicious lesions. Sinuses: Visualized sinuses and mastoids are clear. IMPRESSION: No acute intracranial pathology. Dictated by: Hector Molina M.D. on 07/10/2025 at 8:54 Approved by: Hector Molina M.D. on 07/10/2025 at 8:55
== END 2025-07-10 09:36 | disposition home or self-care (01) ==
PROVIDERS: Emergency Provider Student in an Organized Health Care Education/Training Program; PCP Family Medicine
DX: R51.9 Headache, unspecified (principal)
CPT/HCPCS: 36415; 70450; 96374; 99284; J1885

== ENCOUNTER → 2025-09-19 17:10 | Outpatient (CLI) | payer BC, SELFPAY ==
[2025-09-19 18:01] LABS: Appearance Urine UA CLEAR; Bilirubin Urine UA 1+ (NEGATIVE); Glucose Urine UA NEGATIVE (Negative); Ketones Urine UA NEGATIVE (NEGATIVE); Leukocyte Esterase Urine UA TRACE (NEGATIVE); Nitrite Urine UA NEGATIVE (Negative); Occult Blood Urine UA NEGATIVE (Negative); Protein Urine UA TRACE (Negative); Specific Gravity Urine UA 1.025 (1.000-1.035); Urobilinogen Urine UA 0.2 E.U./dL (0.2)
[2025-09-19 18:05] LABS: Color Urine UA Dark Yellow; pH Urine UA 5.5 (4.5-8.0)
[2025-09-19 18:08] LABS: Culture Indicated Urine Cult Not Indicated; Ictotest Urine Negative (Negative)
== END ==
LOC: LAB 17:11
PROVIDERS: PCP Family Medicine; Referring Provider Family Medicine; Visit Provider Family Medicine
DX: N39.0 Urinary tract infection, site not specified (principal)
CPT/HCPCS: 81001

== ENCOUNTER → 2025-10-01 08:29 | Outpatient (CLI) | payer BC, SELFPAY ==
--- NOTE | 2025-10-01 08:29 | DI.MG.S_ITS ---
MM screening mammo BI: 10/01/2025. BI-RADS: 2 CLINICAL: 64-year old female for bilateral screening mammogram. Tyrer-Cuzick lifetime risk of 20.5%. Current reported family history of breast cancer: maternal grandmother, paternal grandmother and mother. PRIOR EXAMS 08/16/2024, 07/26/2024, 02/13/2023, 12/18/2022. MAMMOGRAPHY TECHNIQUE: 2D and 3D (tomosynthesis) digital mammographic views obtained, with additional images as needed for full coverage. Current study was also evaluated with a Computer Aided Detection (CAD) system. DENSITY C. The breasts are heterogeneously dense, which may obscure small masses. MAMMOGRAPHY FINDINGS Right: No suspicious mass, asymmetry, microcalcification, or other abnormality seen. Left: Benign-appearing calcifications noted on the left. There are no suspicious masses, calcifications, or other findings in the breast. IMPRESSION: Right * No evidence of malignancy. Left * No evidence of malignancy with benign findings. RECOMMENDATIONS Bilateral * According to the Tyrer-Cuzick Risk Assessment Model, based on the information provided your patient has a greater than 20% lifetime risk for developing breast cancer. Consider supplemental screening with breast MRI and participation in a high risk screening program. * Annual screening mammography. OVERALL ASSESSMENT CATEGORY BI-RADS-2: Benign. [employer] [employer] recommends annual screening mammography beginning at age 40 for women with average risk of breast cancer. ELECTRONICALLY SIGNED: Peter Leblanc M.D. on 10/03/2025 at 07:07:09 AM PT Interpreting Station ID: [id number]
== END ==
LOC: MAMMO 08:29
PROVIDERS: PCP Family Medicine; Referring Provider Family Medicine; Visit Provider Family Medicine
DX: Z12.31 Encounter for screening mammogram for malignant neoplasm of breast (principal); R92.333 Mammographic heterogeneous density, bilateral breasts; Z80.3 Family history of malignant neoplasm of breast
CPT/HCPCS: 77063; 77067